=== PATIENT | male | born 1995 | race Caucasian/White ===

== ENCOUNTER 2021-02-26 03:29 | Emergency (ER) | payer OTHER, SELFPAY ==
[2021-02-26 03:37] VITALS: BP 146/81; PULSE 77; RESP 16; TEMP 36.9; O2SAT 98
--- NOTE | 2021-02-26 03:48 | ED.GENADUL_ITS ---
Discharge Plan Disposition Patient Disposition: HOME Condition: Good Discharge Details Clinical Impression: Kidney stone on right side Primary Care Provider: Zenaida Schuster V ED Provider: Eran Peralta Home Meds and New Rx's Prescriptions: New tamsulosin [Flomax] 0.4 mg capsule 0.4 mg PO DAILY Qty: 7 RF: 0 Discharge Instructions Instructions: Kidney Stones (ED) Additional Instructions: At this time you have evidence of a small kidney stone. This is likely the cause of your symptoms. This should pass within the next 12 to 48 hours, if not earlier. Please drink plenty of fluids, 10 to 12 cups/day at least. Please take 800 mg of ibuprofen every 6 hours and 1000 mg of Tylenol every 6 hours as needed for pain. These are the maximum doses of these medicines. Please take the Flomax as directed. This will help in expediting the passage of your kidney stone. If your pain stops, you can stop taking the Flomax. Please strain your urine to collect the stone. This can then be analyzed by your family doctor. If you do not have resolution of your symptoms after 48 to 72 hours please follow-up closely with your family doctor or return here for reassessment. If you notice any worsening of your symptoms, or any new symptoms such as inability to urinate, vomiting, diarrhea, fever, chills, shortness of breath, chest pain, numbness, weakness, or fainting , please return immediately to the emergency department for reevaluation. Please follow up with your primary care provider as soon as possible for reassessment and reevaluation. As always, it was a pleasure participating in your medical care today. Referrals: Zenaida Schuster MD [Primary Care Provider] - Medical Decision Making This is a 25-year-old male with no significant past medical history who presents today for evaluation of right flank pain. Patient states that for the last week he has noticed an increase in urinary frequency, but denies any burning or urethral discharge. He states that this evening and today he had presence of right lower quadrant abdominal pain. He denies a significant radiation to his groin. He denies any penile or testicular pain. Pain is made worse with movement and palpation of the right lower quadrant. Improved by nothing. Last meal was around 10 PM last night. He denies nausea and vomiting. He denies having any kidney or urinary problems before. He denies any previous abdominal surgeries. Patient states that he has not been sexually active for the last 3 years. He denies any history of STDs. No other complaints at this time. No other modifying factors. He did take an ibuprofen an hour prior to arrival and this did not improve his symptoms. Exam demonstrates mild to moderate right lower quadrant tenderness that is reproducible. Positive heel strike test on the right. Negative obturator and psoas sign. Normal genital exam. No testicular tenderness. Differential at this time is concerning for acute appendicitis, but also includes UTI, or kidney stone. We will get a CT scan, urinalysis, monitor closely and reassess. We will give Ofirmev for pain control. 5:09 AM Patient has near complete resolution of his pain on reassessment. Repeat abdominal exam shows no evidence of an acute surgical abdomen. CT scan shows evidence of a 3 to 4 mm distal right ureteral calculus, no evidence of acute appendicitis. Patient's laboratory work-up otherwise remained stable. Patient stable for discharge home. Will recommend continued fluid at home, Tylenol and Motrin as needed. Did discuss with the patient that his potassium is slightly low and recommended diet higher in legumes and bananas. Discussed red flags which to return. No indication for admission at this time as the patient's pain is well controlled, he is able to tolerate p.o. well, dose of tamsulosin was given here, and he has no evidence of infection. I have extensively reviewed [facility] treatment plan and discharge instructions with the patient. I have addressed all patient concerns at this time. The patient was made aware of what symptoms to monitor for that would warrant a return to the emergency department. Discussed the plan with the patient, they demonstrate verbal understanding and agreement with our assessment and plan at this time. The documentation in this chart was dictated using [employer] dictation software. Please excuse any dictation errors. FINDINGS: Liver: Normal. No mass. Gallbladder and bile ducts: Normal. No calcified stones. No ductal dilation. Pancreas: Normal. No ductal dilation. Spleen: Normal. No splenomegaly. Adrenal glands: Normal. No mass. Kidneys and ureters: Mild right hydroureteronephrosis secondary to a distal right ureteral calculus measuring approximately 3 -4 mm. Additional right renal calculus in the lower pole measuring 3-4 mm. Faint bilateral nephrocalcinosis suspected Stomach and bowel: Unremarkable. No obstruction. No mucosal thickening. Appendix: No evidence of appendicitis. Intraperitoneal space: Small pelvic fluid No free air. No significant fluid collection. Vasculature: Unremarkable. No abdominal aortic aneurysm. Lymph nodes: Unremarkable. No enlarged lymph nodes. Urinary bladder: Unremarkable as visualized. Reproductive: Unremarkable as visualized. Bones/joints: Unremarkable. No acute fracture. Soft tissues: Unremarkable. IMPRESSION: 3-4 mm distal right ureteral calculus with mild right hydroureteronephrosis 3-4 mm right renal calculus and faint bilateral nephrocalcinosis Small pelvic fluid No CT evidence for appendicitis Thank you for allowing us to participate in the care of your patient. Dictated and Authenticated by: Feliz Choudhury MD 02/26/2021 5:00 AM Eastern Time ([place] & [place]) HPI General Date/Time Provider Initiated Documentation: 02/26/21 03:30 . HPI Narrative: This is a 25-year-old male with no significant past medical history who presents today for evaluation of right flank pain. Patient states that for the last week he has noticed an increase in urinary frequency, but denies any burning or urethral discharge. He states that this evening and today he had presence of right lower quadrant abdominal pain. He denies a significant radiation to his groin. He denies any penile or testicular pain. Pain is made worse with movement and palpation of the right lower quadrant. Improved by nothing. Last meal was around 10 PM last night. He denies nausea and vomiting. He denies having any kidney or urinary problems before. He denies any previous abdominal surgeries. Patient states that he has not been sexually active for the last 3 years. He denies any history of STDs. No other complaints at this time. No other modifying factors. He did take an ibuprofen an hour prior to arrival and this did not improve his symptoms. Related Data Home Medications Medication Instructions Recorded Confirmed tamsulosin [Flomax] 0.4 mg PO DAILY #7 cap 02/26/21 Previous Rx's Medication Instructions Recorded tamsulosin [Flomax] 0.4 mg PO DAILY #7 cap 02/26/21 Allergies Allergy/AdvReac Type Severity Reaction Status Date / Time No Known Allergies Allergy Unverified 07/03/13 13:27 General Stated Complaint: Abd Prob MICAELA: 3 Review of Systems All systems reviewed & are unremarkable except as noted in HPI and below PFSH Social History (Reviewed 02/26/21 @ 04:07 by HERNANDO oRa Smoking/Tobacco Use Status: Never Smoking risk assessment performed?: Yes Alcohol Intake: current Alcohol Intake frequency: a few times a week Substance use type: does not use Do you feel safe at home: Yes Exam Narrative Exam Narrative: 1.Const: Well-nourished, Well-developed, appearing stated age 2.Eyes: PERRL, no conjunctival injection, and symmetrical lids. 3.ENT: Atraumatic external nose and ears. Moist MM. Neck: Symmetric, trachea midline, No thyromegaly. 4.CVS: +S1/S2, No murmurs or gallops. Peripheral pulses 2+ and equal in all extremities. Brisk capillary refill in all extremities. 5.RESP: Unlabored respiratory effort. Clear to auscultation bilaterally. No wheezes rales or rhonchi 6.GI: Soft, nondistended, mild to moderate right lower quadrant tenderness on palpation. No guarding or rebound. There is pain at McBurney's point, negative Weller sign. Negative obturator and psoas sign, positive right-sided heel strike test. No significant CVA tenderness. Genital exam demonstrates normal male genitalia, normal cremasteric reflex, no testicular scrotal or penile tenderness. No urethral discharge present. 7.MSK: Normocephalic/Atraumatic, Extremities w/o deformity or ttp No cyanosis or clubbing, Normal movement of all extremities 8.Skin: Warm, Dry. No rashes or lesions. 9.Neuro: wellness program administrator II-XII grossly intact. Sensation grossly intact, no focal neurologic deficits. 10.Psych: (AAO) x3. Appropriate mood and affect Course Vital Signs Vital signs: Vital Signs Temperature 36.9 C 02/26/21 03:37 Pulse 77 02/26/21 03:37 Respiratory Rate 16 02/26/21 03:37 Blood Pressure 146/81 H 02/26/21 03:37 Pulse Oximetry 98 02/26/21 03:37 Temperature 36.9 C 02/26/21 03:37 Temperature Source Skin 02/26/21 03:37 Pulse 77 02/26/21 03:37 Respiratory Rate 16 02/26/21 03:37 Respiratory Effort Non-Labored 02/26/21 03:41 Blood Pressure 146/81 H 02/26/21 03:37 Blood Pressure Position Sitting 02/26/21 03:37 Pulse Oximetry 98 02/26/21 03:37 Oxygen Delivery Method Room Air 02/26/21 03:37 Oxygen Flow Rate 0 02/26/21 03:37 Pain Level 6 02/26/21 03:41
[2021-02-26 04:03] LABS: Abs Immature Grans 0.01 10^3/uL (0.0-0.06); Absolute Basophil Count 0.05 10^3/uL (0.0-0.2); Absolute Lymphocyte Count 1.74 10^3/uL (1.2-3.4); Absolute Monocyte Count 0.55 10^3/uL (0.1-0.8); Absolute Neutrophil Count 5.25 10^3/uL (1.2-6.7); Basophils % 0.6; Eosinophils % 3.8; HCT 38.4 % (40.0-50.0); HGB 13.2 g/dL (13.5-17.5); Immature Grans % 0.1; MCH 29.5 pg (27.0-33.0); MCHC 34.4 % (32.0-36.0); MCV 85.9 fL (80-95); MPV 8.9 fL (8.0-11.0); Neutrophils % 66.5; Nucleated RBC 0 %; Platelet Count 233 10^3/uL (130-400); RBC 4.47 10^6/uL (4.36-5.78); RDW 12.4 % (11.8-14.1); RDW-SD 39.1 fL
[2021-02-26 04:04] LABS: Bilirubin Negative (Negative); Blood Large (Negative); Clarity Clear (Clear); Glucose Negative (Negative); Ketones Negative (Negative); Leukocyte Esterase Negative (Negative); Nitrite Negative (Negative); Urobilinogen 0.2 EU/dL (Up TO 0.2)
[2021-02-26] MEDS: ACETAMINOPHEN 1,000 MG/100 ML BTL 400 MG IVPB (04:08)
[2021-02-26 04:09] LABS: Bacteria Negative HPF (Negative); C & S Indicated? No; Casts Negative LPF (Negative); Crystals Negative HPF (Negative); Epithelial Cells Negative HPF (Negative); Mucus Negative (Negative); WBC Negative HPF (0-5)
[2021-02-26] MEDS: Normal Saline 1,000 ML 1000 ML IV (04:09)
[2021-02-26 04:14] LABS: ALT 15 U/L (16-63); AST 16 U/L (15-37); Albumin 4.3 g/dL (3.4-5.0); Alkaline Phosphatase 68 U/L (46-116); Anion Gap 11.6 mmol/L (3-11); BUN 19 mg/dL (7-18); Bilirubin, Total 0.6 mg/dL (0.2-1.0); CO2 25.4 mmol/L (21.0-32.0); CREATININE 1.2 mg/dL (0.70-1.30); Calcium 8.8 mg/dL (8.5-10.1); Chloride 104 mmol/L (98-107); Glucose 121 mg/dL (74-106); Potassium 3.1 mmol/L (3.5-5.1); Sodium 141 mmol/L (136-145); Total Protein 7.1 g/dL (6.4-8.2)
--- NOTE | 2021-02-26 04:36 | DI.CT_ITS ---
Exam(s) CT ABDOMEN PELVIS WO EXAM: CT ABDOMEN PELVIS WO CLINICAL HISTORY: rlq pain, r/o appe. TECHNIQUE: Imaging Protocol: Axial computed tomography images with coronal and sagittal reformatted images were created and reviewed. COMPARISON: No exams were available for comparison FINDINGS: ABDOMEN: Lung Bases: Normal where visualized. Liver: Normal density. No measurable mass. Gallbladder and biliary tract: No radiodense calculus or biliary ductal dilation. Pancreas: Normal density, no abnormal calcifications or inflammatory process. Spleen: Normal. Kidneys: Normal size, contour and axis.4 mm nonobstructing stone in the lower pole of the right kidne y. There is a 4 mm stone in the distal right ureter just proximal to the ureteral vesicular junction causing mild hydronephrosis. No masses seen. Adrenal glands: No mass is seen. Lymph nodes: Mildly enlarged lymph nodes are seen in the right lower quadrant and mesentery. Abdominal Aorta: Abdominal portion non-dilated. PELVIS: Bladder:Symmetric distention, no gross wall thickening. Bowel: No obstruction or bowel wall thickening. No evidence of appendicitis. Peritoneal cavity: There is a small amount of fluid in the pelvis. No free air. Reproductive organs: Within normal limits. Bones: Within normal limits. Soft Tissues: Within normal limits. IMPRESSION: 1. 4 mm distal right ureteral stone causing mild right hydroureteronephrosis. 2. Right nephrolithiasis. 3. No evidence of appendicitis. 4. Small fat amount of free pelvic fluid. RADIATION DOSE DELIVERED: 417.17mGy.cm Total DLP DATA REPOSITORY: All CT scans at this facility are submitted to the National Radiology Data Registry (NRDR) Dose Index Registry (DIR) with the [employer] (ACR). RADIATION OPTIMIZATION: All CT scans at this facility use at least one of these dose optimization te chniques: automated exposure control; mA and/or kV adjustment per patient size (includes targeted exa ms where dose is matched to clinical indication); or iterative reconstruction.
--- NOTE | 2021-02-26 05:00 | DI.VRAD_ITS ---
PROCEDURE INFORMATION: Exam: CT Abdomen And Pelvis Without Contrast Exam date and time: 02/26/2021 3:48 AM Age: 25 years old Clinical indication: Abdominal pain; Localized; Right lower quadrant (rlq); Patient HX: Rlq pain, hematuria, nausea, R/O appe vs renal stone TECHNIQUE: Imaging protocol: Computed tomography of the abdomen and pelvis without contrast. Radiation optimization: All CT scans at this facility use at least one of these dose optimization techniques: automated exposure control; mA and/or kV adjustment per patient size (includes targeted exams where dose is matched to clinical indication); or iterative reconstruction. COMPARISON: No relevant prior studies available. FINDINGS: Liver: Normal. No mass. Gallbladder and bile ducts: Normal. No calcified stones. No ductal dilation. Pancreas: Normal. No ductal dilation. Spleen: Normal. No splenomegaly. Adrenal glands: Normal. No mass. Kidneys and ureters: Mild right hydroureteronephrosis secondary to a distal right ureteral calculus measuring approximately 3 -4 mm. Additional right renal calculus in the lower pole measuring 3-4 mm. Faint bilateral nephrocalcinosis suspected Stomach and bowel: Unremarkable. No obstruction. No mucosal thickening. Appendix: No evidence of appendicitis. Intraperitoneal space: Small pelvic fluid No free air. No significant fluid collection. Vasculature: Unremarkable. No abdominal aortic aneurysm. Lymph nodes: Unremarkable. No enlarged lymph nodes. Urinary bladder: Unremarkable as visualized. Reproductive: Unremarkable as visualized. Bones/joints: Unremarkable. No acute fracture. Soft tissues: Unremarkable. IMPRESSION: 3-4 mm distal right ureteral calculus with mild right hydroureteronephrosis 3-4 mm right renal calculus and faint bilateral nephrocalcinosis Small pelvic fluid No CT evidence for appendicitis Dictated and Authenticated by: Feliz Choudhury MD. Ordering:LAURA Barillas MD
[2021-02-26] MEDS: Tamsulosin 0.4 MG CAPCR PO (05:07)
[2021-02-26 05:08] VITALS: BP 125/69; PULSE 81; RESP 16; O2SAT 98
== END 2021-02-26 05:11 | disposition home or self-care (01) ==
PROVIDERS: Emergency Provider Student in an Organized Health Care Education/Training Program; PCP Pediatrics
DX: N20.0 Calculus of kidney (principal)
CPT/HCPCS: 80053; 87491; 87591; 96361; 96374; 99284; 74176; 81003; 81015; 85025; 99283; J0131

== ENCOUNTER 2021-09-16 03:10 | Outpatient (CLI) | payer OTHER, SELFPAY ==
[2021-09-16 13:00] LABS: Hemoglobin A1C 5.2 % (<5.7)
[2021-09-16 13:24] LABS: Calculated LDL 83 mg/dL (<100); Cholesterol 145 mg/dL (<200); HDL Cholesterol 55 mg/dL (40-60); TSH 2.07 uIU/mL (0.36-3.74); Triglyceride 36 mg/dL (<150)
== END 2021-09-16 03:11 | disposition home or self-care (01) ==
LOC: LBO 03:10
PROVIDERS: PCP Nurse Practitioner Family; Visit Provider Nurse Practitioner Family
DX: Z13.220 Encounter for screening for lipoid disorders (principal); Z13.1 Encounter for screening for diabetes mellitus; Z13.29 Encounter for screening for other suspected endocrine disorder
CPT/HCPCS: 36415; 80061; 83036; 84443

== ENCOUNTER 2021-09-17 20:05 | Outpatient (REF) | payer OTHER, SELFPAY ==
[2021-09-17 21:19] LABS: Bilirubin Negative (Negative); Blood Negative (Negative); Clarity Clear (Clear); Glucose Negative (Negative); Ketones Negative (Negative); Leukocyte Esterase Negative (Negative); Nitrite Negative (Negative); Urobilinogen 0.2 EU/dL (Up TO 0.2); pH 8.5 (5-8)
== END 2021-09-17 20:06 | disposition home or self-care (01) ==
LOC: LBN 20:05
PROVIDERS: PCP Nurse Practitioner Family; Visit Provider Physician Assistant
DX: N39.0 Urinary tract infection, site not specified (principal)
CPT/HCPCS: 81003

== ENCOUNTER 2021-12-30 20:26 | Outpatient (REF) | payer OTHER, SELFPAY ==
[2022-01-01 09:47] LABS: HIV-1/2 Ag & Ab Screen Negative (Negative)
[2022-01-01 11:35] LABS: Syphilis Serology (RPR) Negative (Negative)
[2022-01-01 14:57] LABS: Chlamydia Result Negative (Negative); GC Result Negative (Negative)
== END 2021-12-30 20:27 | disposition home or self-care (01) ==
LOC: LBN 20:26
PROVIDERS: PCP Nurse Practitioner Family; Visit Provider Nurse Practitioner Family
DX: Z11.3 Encounter for screening for infections with a predominantly sexual mode of transmission (principal); Z11.4 Encounter for screening for human immunodeficiency virus [HIV]
CPT/HCPCS: 87389; 87491; 87591; 86592

== ENCOUNTER 2022-01-21 20:28 | Outpatient (REF) | payer OTHER, SELFPAY ==
[2022-01-22 10:38] LABS: Campylobacter PCR Negative (Negative); Salmonella PCR Negative (Negative); Shiga Toxin PCR Negative (Negative); Shigella/Enteroinvasive Ecoli Negative (Negative)
== END 2022-01-21 20:29 | disposition home or self-care (01) ==
LOC: LBN 20:28
PROVIDERS: PCP Nurse Practitioner Family; Visit Provider Nurse Practitioner Family
DX: R19.7 Diarrhea, unspecified (principal)
CPT/HCPCS: 87505

== ENCOUNTER 2022-01-24 13:53 | Emergency (ER) | payer OTHER, SELFPAY ==
[2022-01-24 13:59] VITALS: BP 131/88; PULSE 89; RESP 16; TEMP 37.1; O2SAT 98
--- NOTE | 2022-01-24 14:06 | ED.GENADUL_ITS ---
Discharge Plan Disposition Patient Disposition: HOME Condition: Stable Discharge Details Clinical Impression: Anxiety Primary Care Provider: Rajeev Laboy ED Provider: Sonia Lima Home Meds and New Rx's Prescriptions: No Action lorazepam [Ativan] 0.5 mg tablet 0.5 mg PO BID PRN0RF tamsulosin 0.4 mg capsule 0.8 mg PO DAILY 7 Days Qty: 14 0RF Discharge Instructions Instructions: Anxiety (ED) Additional Instructions: Your lab work, EKG and chest x-ray today is reassuring and shows no evidence of acute concerning or significant findings. You are being sent home with Ativan to take as needed and directed for feelings of anxiety or to help with sleep. You can call [facility] health at [phone] for further discussion your symptoms. Call your primary care doctor's office tomorrow morning to schedule follow-up appointment for reevaluation within the next week. Return immediately to the emergency department if you develop any worsening or new concerning symptoms. Discharge Data Discharge Date/Time-TO BE ENTERED AT DEPARTURE: 01/24/22 16:24 Discharge Physician: Sonia Lima Medical Decision Making 26-year-old male presents with feelings of anxiety over the past few days. Admits to palpitations, difficulty sleeping, intermittent shortness of breath. Denies any alcohol or drug use. Vitals within normal limits. Patient appears anxious but nontoxic. No acute findings on exam. No focal deficits. No meningeal signs. History and presentation does not appear consistent with likely a panic attack. History and presentation does not appear consistent with CVA, meningitis, PE, arrhythmia. Will obtain screening labs, EKG, chest x-ray, D-dimer and thyroid studies. We will give a dose of Ativan p.o. Labs and imaging reviewed and unremarkable. Normal white blood cell count. Normal hemoglobin. Normal D-dimer. Troponin negative. TSH within normal limits. Chest x-ray negative. EKG unremarkable. Patient reassessed and he feels significantly better and is requesting to go home. He was offered opportunity to speak with behavioral health which she declined. He prefers to take resources home. Patient advised to call his PCP this week for reevaluation and further discussion of his symptoms including possibility of starting SSRI or another medication which may be able to better manage his anxiety long-term. Will send home with a few tabs of Ativan to take as needed for feelings of anxiety or to help with sleep. Other possible considerations for further work-up including outpatient library monitor if symptoms were to persist or worsen. Medical Records Medical records reviewed: Yes I reviewed the patient's medical records. Imaging Data Radiologic Study: Radiologist's impression: XR Chest Exam date and time: 01/24/2022 3:00 PM Age: 26 years old Clinical indication: Other: Chest pain, SOB, R/O acute disease TECHNIQUE: Imaging protocol: XR of the chest. Views: 2 views. COMPARISON: CT ABDOMEN PELVIS WO 02/26/2021 4:35 AM FINDINGS: Lungs: Unremarkable. No consolidation. Pleural spaces: Unremarkable. No pleural effusion. No pneumothorax. Heart/Mediastinum: Unremarkable. No cardiomegaly. Bones/joints: Unremarkable. IMPRESSION: No acute findings. Lab Data Lab results reviewed: Yes I reviewed the patient's lab results. Labs: Laboratory Tests Range/Units 01/24/22 01/24/22 01/24/22 14:45 14:45 14:45 WBC (4.4-10.8) 10^3/uL 7.79 RBC (4.36-5.78) 10^6/uL 4.69 Hgb (13.5-17.5) g/dL 13.6 Hct (40.0-50.0) % 40.1 MCV (80-95) fL 86 MCH (27.0-33.0) pg 29.0 MCHC (32.0-36.0) % 33.9 RDW (11.8-14.1) % 12.7 Plt Count (130-400) 10^3/uL 293 MPV (8.0-11.0) fL 8.8 Immature Gran % 0.4 Neutrophils % 73.2 Lymphocytes % 14.5 Monocytes % 10.0 Eosinophils % 1.4 Basophils % 0.5 Nucleated RBC % (0.0-0.3) % 0.0 Absolute Neutrophils (1.2-6.7) 10^3/uL 5.70 Absolute Lymphocytes (1.2-3.4) 10^3/uL 1.13 L Absolute Monocytes (0.1-0.8) 10^3/uL 0.78 Absolute Eosinophils (0.0-0.7) 10^3/uL 0.11 Absolute Basophils (0.0-0.2) 10^3/uL 0.04 D-Dimer (<500) ng/mlFEU 149 Sodium (136-145) mmol/L 139 Potassium (3.5-5.1) mmol/L 3.6 Chloride (98-107) mmol/L 106 Carbon Dioxide (21.0-32.0) mmol/L 26.2 Anion Gap (3-11) mmol/L 6.8 BUN (7-18) mg/dL 14 Creatinine (0.70-1.30) mg/dL 1.0 Estimated GFR/1.73 m2 (mL/min/1.73m2) >= 60.00 Glucose (74-106) mg/dL 108 H Calcium (8.5-10.1) mg/dL 9.0 Magnesium (1.8-2.4) mg/dL 2.2 Total Bilirubin (0.2-1.0) mg/dL 0.5 AST (15-37) U/L 15 ALT (16-63) U/L 20 Alkaline Phosphatase (46-116) U/L 76 Troponin I (<or=60) ng/L < 50 Total Protein (6.4-8.2) g/dL 7.7 Albumin (3.4-5.0) g/dL 4.2 TSH (0.36-3.74) uIU/mL 1.33 ECG Data Attestation: I personally reviewed and interpreted this ECG (s) as follows: Interpretation: rate of 67, sinus, LVH, peaked T waves, no stemi. HPI General Mode of arrival: ambulatory . Date/Time Provider Initiated Documentation: 01/24/22 14:06 . Limitations to Documentation: no limitations . Information obtained by: patient . HPI Narrative: Patient is a 26-year-old male who presents with feelings of anxiety for the past several days. Patient states he flew to [place] a few days ago and became very anxious during the flight. He states he went directly to an urgent care for his symptoms and he was given hydroxyzine without relief. He states he immediately brought another plane ticket to return immediately home but had been originally scheduled to stay until January 30. He states since then he has been unable to sleep with feelings of palpitations, occasional shortness of breath and anxiety. He states every time he tries to lay down to go to sleep because palpitations wake him up again. He denies any caffeine or stimulant use, drug use or alcohol use. He denies smoking. He denies any recent illness including fever, vomiting, diarrhea. He does admit to occasional chest pain and shortness of breath but denies any at present. He states his main concern at this time is being able to try to sleep. He states he did have COVID a few months ago but states he fully recovered. He is not vaccinated for COVID. Related Data Home Medications Medication Instructions Recorded Confirmed tamsulosin 0.4 mg capsule 0.8 mg PO DAILY 7 Days #14 cap 01/25/22 lorazepam 0.5 mg tablet (Ativan) 0.5 mg PO BID PRN 01/26/22 Previous Rx's Medication Instructions Recorded tamsulosin 0.4 mg capsule 0.8 mg PO DAILY 7 Days #14 cap 01/25/22 Allergies Allergy/AdvReac Type Severity Reaction Status Date / Time Penicillins Allergy Verified 01/26/22 10:31 shellfish derived Allergy Anaphylaxis Verified 01/26/22 10:31 General Stated Complaint: Anxiety MICAELA: 3 Review of Systems All systems reviewed & are unremarkable except as noted in HPI and below Constitutional Constitutional: Denies chills, Denies excessive sweating, Denies fatigue, Denies fever(s), Denies weakness and Denies weight loss Eyes Eyes: Reports system reviewed and no additional complaints, except as documented and Denies blurry vision ENT Ears, Nose, Mouth, and Throat: Denies vertigo, Denies dizziness, Denies otalgia, Denies nasal congestion, Denies sore throat and Denies throat swelling Cardiovascular Cardiovascular: Denies chest pain, Denies syncope, Denies rapid heart rate and Denies dyspnea Respiratory Respiratory: Denies chest congestion, Denies cough, Denies pain on inspiration and Denies dyspnea Gastrointestinal Gastrointestinal: Denies abdominal pain, Denies diarrhea and Denies vomiting Genitourinary Genitourinary: Denies hematuria, Denies dysuria and Denies flank pain Musculoskeletal Musculoskeletal: Denies back pain and Denies joint swelling Integumentary/Breasts Skin/Breast: Denies lesions and Denies rash Neurologic Neurologic: Denies behavioral changes, Denies confusion, Denies vertigo, Denies dizziness, Denies syncope, Denies localized weakness and Denies weakness Psychiatric Psychiatric: Reports abnormal sleep pattern, Reports anxiety, Denies behavioral changes, Denies confusion, Denies depression and Reports difficulty concentrating Endocrine Endocrine: Denies excessive sweating and Denies fatigue Hematologic/Lymphatic Hematologic/Lymphatic: Denies easy bruising and Denies lymphadenopathy Allergic/Immunologic Allergic/Immunologic: Denies throat swelling PFSH All Active Problems (Updated 01/25/22 @ 13:13 by Yung Dawson MD) Anxiety (Chronic) Kidney stone (Chronic) Hydronephrosis (Acute) Family history of colon cancer (Acute) Diarrhea (Acute) Medical History (Updated 01/25/22 @ 13:13 by Yung Dawson MD) Family history of irritable bowel syndrome Kidney stone on right side Surgical History (Updated 01/24/22 @ 14:33 by Sonia Lima DO) No significant past surgical history Family History Mother Asthma Father No problems noted. Paternal Grandfather Diabetes Hyperlipidemia Paternal Grandmother Colon cancer Depression Hyperlipidemia Social History (Updated 01/22/22 @ 07:41 by AC Puente) Smoking/Tobacco Use Status: Never Second Hand Exposure: Yes Smoking risk assessment performed?: Yes Alcohol Intake: current Alcohol Intake frequency: 0-2 drinks per day Alcohol type: hard liquor Drug use: Rarely Substance use type: marijuana Details: smoked 2 years ago Caregiver/Support person: No Household members: other Details: roomate Communication Needs: None Pets and animals: Yes Pets and animals: dog(s) Sexually active: No Do you think of yourself as: straight/heterosexual Current gender identity: male What is your relationship status?: never How often do you talk on the phone with friends or family?: three or more times per week How often do you get together with friends or relatives?: once per week How often do you attend mandaeism or baptist services?: 1-3 times per year Panel score (0-1 are the most socially isolated patients): 1 What type of physical activity do you participate in: bicycling Duration: 45-60 minutes/day Frequency: daily Karla/Mandaeism: Sikhism Special karla needs: No Seatbelt use: always Helmet use: Yes Helmet use: sometimes Drive intox or ride w/intox 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 Do you feel safe at home: Yes Do you feel safe in your relationship?: Yes Exam Const General: cooperative, healthy appearing and anxious Orientation: alert, awake and oriented x3 HENIL Head: normal to inspection Ears: hearing grossly normal bilaterally and external ears normal General nose exam: external nose normal Face and sinus: normal facial exam Mouth: oral mucosae normal Teeth and gingiva: dentition normal Throat: posterior oropharynx normal Eyes General: appearance normal, both eyes and all related structures Eyelids: eyelids normal Pupils: PERRL EOM: EOM intact bilaterally Neck Neck: normal visual inspection Lymphatic: no lymphadenopathy noted Chest Chest: normal inspection of the chest Resp Effort & Inspection: normal respiratory effort and able to speak in complete sentences Auscultation: clear to auscultation bilaterally Cardio Rate: regular rate Rhythm: regular rhythm GI Inspection: normal to inspection Palpation: soft, not firm, no guarding, no hepatosplenomegaly, no masses and nontender Auscultation: normal bowel sounds Back/Spine/Pelvis Back: no CVA tenderness Skin General skin exam: no rashes or lesions noted Neuro General: patient alert, patient awake, patient oriented x3, moves all extremities, no meningeal signs and no focal motor deficits Cranial Nerves: CN's II-XI intact bilaterally Cognition: normal cognition Speech: speech normal Gait: normal gait Motor: muscle tone normal throughout and strength 5/5 throughout Sensory Exam: no sensory deficits noted Extrem General: normal to inspection, full ROM and capillary refill normal Psych Appearance: grossly normal Mental Status: mental status grossly normal Speech and Movement: speech and movement normal Mood: anxious mood Affect: anxious affect Attitude: cooperative Thought Process: normal
[2022-01-24 14:08] VITALS: RESP 16
--- NOTE | 2022-01-24 14:15 | RT.EKG_ITS ---
APPROVED REPORT Exam: Resting ECG Reason for Exam: chest pain Patient Location: E HR:67 bpm ECG Measurements Heart Rate 67 AXIS AR 140 P 76 QRSd 92 QRS 78 QT 377 T 68 QTc 398 Conclusion Sinus rhythm...normal P axis, V-rate 60- 99. Sinus. Normal axis. LVH. Peaked T waves. No STEMI. I have reviewed and interpreted ECG and agree with software generated interpretation.
[2022-01-24] MEDS: LORazepam 1 MG TAB PO (14:27)
--- NOTE | 2022-01-24 14:30 | DI.RAD_ITS ---
Exam(s) XR CHEST 2V PA LATERAL EXAM: XR CHEST 2V PA LATERAL CLINICAL HISTORY: chest pain, sob, r/o acute disease TECHNIQUE: 2D digital imaging was performed. COMPARISON: No exams were available for comparison FINDINGS: MEDIASTINUM: Normal. HEART: Normal. PULMONARY VASCULATURE: Normal. LUNGS: Clear. PLEURAL SPACE: No pleural effusion or pneumothorax. BONE:Unremarkable for age. IMPRESSION: No acute abnormality. DATA REPOSITORY: RADIATION DOSE DELIVERED:
[2022-01-24 14:53] LABS: Abs Immature Grans 0.03 10^3/uL (0.0-0.06); Absolute Basophil Count 0.04 10^3/uL (0.0-0.2); Absolute Eosinophil Count 0.11 10^3/uL (0.0-0.7); Absolute Lymphocyte Count 1.13 10^3/uL (1.2-3.4); Absolute Monocyte Count 0.78 10^3/uL (0.1-0.8); Basophils % 0.5; Eosinophils % 1.4; HCT 40.1 % (40.0-50.0); HGB 13.6 g/dL (13.5-17.5); Immature Grans % 0.4; Lymphocytes % 14.5; MCHC 33.9 % (32.0-36.0); MCV 86 fL (80-95); MPV 8.8 fL (8.0-11.0); Neutrophils % 73.2; Platelet Count 293 10^3/uL (130-400); RBC 4.69 10^6/uL (4.36-5.78); RDW 12.7 % (11.8-14.1); RDW-SD 39.6 fL; WBC 7.79 10^3/uL (4.4-10.8)
[2022-01-24 15:17] LABS: ALT 20 U/L (16-63); AST 15 U/L (15-37); Albumin 4.2 g/dL (3.4-5.0); Alkaline Phosphatase 76 U/L (46-116); Anion Gap 6.8 mmol/L (3-11); BUN 14 mg/dL (7-18); Bilirubin, Total 0.5 mg/dL (0.2-1.0); CO2 26.2 mmol/L (21.0-32.0); Chloride 106 mmol/L (98-107); Glucose 108 mg/dL (74-106); Magnesium 2.2 mg/dL (1.8-2.4); Potassium 3.6 mmol/L (3.5-5.1); Sodium 139 mmol/L (136-145); TSH (W/Ref FT4) 1.33 uIU/mL (0.36-3.74); Total Protein 7.7 g/dL (6.4-8.2); Troponin I < 50 ng/L (<or=60)
[2022-01-24 15:26] LABS: D-Dimer 149 ng/mlFEU (<500)
--- NOTE | 2022-01-24 15:45 | DI.VRAD_ITS ---
PROCEDURE INFORMATION: Exam: XR Chest Exam date and time: 01/24/2022 3:00 PM Age: 26 years old Clinical indication: Other: Chest pain, SOB, R/O acute disease TECHNIQUE: Imaging protocol: XR of the chest. Views: 2 views. COMPARISON: CT ABDOMEN PELVIS WO 02/26/2021 4:35 AM FINDINGS: Lungs: Unremarkable. No consolidation. Pleural spaces: Unremarkable. No pleural effusion. No pneumothorax. Heart/Mediastinum: Unremarkable. No cardiomegaly. Bones/joints: Unremarkable. IMPRESSION: No acute findings. Dictated and Authenticated by: Sanjeev Dickson MD. Ordering:RAMAKRISHNA Soctt MD
[2022-01-24] MEDS: LORazepam 0.5 MG TAB 2 MG PO (16:22)
== END 2022-01-24 16:24 | disposition home or self-care (01) ==
PROVIDERS: Emergency Provider Physician Assistant; PCP Nurse Practitioner Family
DX: F41.9 Anxiety disorder, unspecified (principal); R07.9 Chest pain, unspecified; R06.02 Shortness of breath
CPT/HCPCS: 36415; 80053; 93005; 99284; 71046; 83735; 84443; 84484; 85025; 85379; 93010; 99283

== ENCOUNTER 2022-01-25 11:25 | Emergency (ER) | payer OTHER, SELFPAY ==
[2022-01-25 11:32] VITALS: BP 140/82; PULSE 69; RESP 17; TEMP 37.2; O2SAT 100
[2022-01-25 12:10] LABS: Abs Immature Grans 0.06 10^3/uL (0.0-0.06); Absolute Basophil Count 0.06 10^3/uL (0.0-0.2); Absolute Eosinophil Count 0.14 10^3/uL (0.0-0.7); Absolute Lymphocyte Count 1.24 10^3/uL (1.2-3.4); Absolute Monocyte Count 0.68 10^3/uL (0.1-0.8); Absolute Neutrophil Count 6.22 10^3/uL (1.2-6.7); Basophils % 0.7; Eosinophils % 1.7; HCT 42.3 % (40.0-50.0); HGB 14.6 g/dL (13.5-17.5); Immature Grans % 0.7; Lymphocytes % 14.8; MCH 29.3 pg (27.0-33.0); MCHC 34.5 % (32.0-36.0); MCV 85 fL (80-95); MPV 8.9 fL (8.0-11.0); Monocytes % 8.1; Platelet Count 310 10^3/uL (130-400); RBC 4.99 10^6/uL (4.36-5.78); RDW 12.4 % (11.8-14.1); RDW-SD 38.2 fL
[2022-01-25] MEDS: Normal Saline 500 ML 1000 ML IV (12:11)
[2022-01-25] MEDS: Ondansetron 4 MG/2 ML VIAL IVP (12:11)
[2022-01-25] MEDS: Ketorolac 15 MG/ML VIAL IVP (12:12)
[2022-01-25 12:20] LABS: ALT 16 U/L (16-63); AST 17 U/L (15-37); Albumin 4.4 g/dL (3.4-5.0); Alkaline Phosphatase 77 U/L (46-116); Anion Gap 12.7 mmol/L (3-11); BUN 18 mg/dL (7-18); Bilirubin, Total 0.8 mg/dL (0.2-1.0); CO2 24.3 mmol/L (21.0-32.0); CREATININE 1.5 mg/dL (0.70-1.30); Calcium 9.3 mg/dL (8.5-10.1); Chloride 99 mmol/L (98-107); Estimated GFR 56.57 (mL/min/1.73m2); Glucose 120 mg/dL (74-106); Potassium 3.3 mmol/L (3.5-5.1); Sodium 136 mmol/L (136-145)
[2022-01-25] MEDS: Tamsulosin 0.4 MG CAPCR PO (12:23)
[2022-01-25 12:24] LABS: Bilirubin Small (Negative); Blood Trace-lysed (Negative); Clarity Clear (Clear); Glucose Negative (Negative); Ketones 40 mg/dL (Negative); Leukocyte Esterase Negative (Negative); Nitrite Negative (Negative); Specific Gravity >= 1.030 (1.005-1.025); Urobilinogen 0.2 EU/dL (Up TO 0.2); pH 5.5 (5-8)
[2022-01-25 12:29] LABS: Bacteria Negative HPF (Negative); C & S Indicated? No; Casts 0-2 Hyaline LPF (Negative); Crystals Negative HPF (Negative); Epithelial Cells Rare HPF (Negative); Mucus Moderate (Negative); RBC 0-2 HPF (0-2); WBC Negative HPF (0-5)
--- NOTE | 2022-01-25 12:37 | W.ED.GENAD ---
Discharge Plan Disposition Patient Disposition: HOME Condition: Improving Discharge Details Clinical Impression: Kidney stone, Hydronephrosis Primary Care Provider: Rajeev Laboy ED Provider: Yung Dawson Home Meds and New Rx's Prescriptions: New tamsulosin 0.4 mg capsule 0.8 mg PO DAILY 7 Days Qty: 14 0RF Discharge Instructions Instructions: Kidney Stones (ED) Additional Instructions: Please follow-up with Dr. Ortega's office (urology) this week to schedule your procedure. Please return to the emergency department for worsening symptoms which would include nausea vomiting inability urinate worsening pain fevers chills or other abnormal symptoms. Referrals: Berry Ortega MD [ [facility] STAFF PHYSICIAN] - (office visit this week) Claudine Buchanan DNP [NURSE PRACTITIONER] - (office visit this week) Medical Decision Making 26-year-old male history of kidney stones presents with right flank pain abdominal pain associated with inability to urinate, discomfort gotten worse over the past 2 days however has intermittent pain that he attributes to kidney stones over the past several months to year, no history of lithotripsy or stenting. Abdomen soft nontender nondistended, no nausea or vomiting, hemodynamically stable, consider nephrolithiasis with renal colic versus less likely pyelonephritis or UTI versus must consider appendicitis versus colitis, analgesia antiemetics, labs, CT Noncon close reassessment 13: 10 patient resting comfortably no acute distress at this time, Toradol was beneficial. Evidence of obstructing 4 mm right UVJ stone stable in location since February of last year. Spoke with urology team who will schedule patient in the office for ureteroscopy. Patient to be sent home on tamsulosin. Strict return precautions for worsening symptoms or signs of infection HPI General Date/Time Provider Initiated Documentation: 01/25/22 11:50. HPI Narrative: 26-year-old male history of kidney stones, presents with right abdominal/flank discomfort severe in nature over the past several months worsening over the past 2 days, denies nausea or vomiting, endorses that he is unable to urinate. Denies history of instrumentation such as stenting or lithotripsy Related Data Home Medications Medication Instructions Recorded Confirmed tamsulosin 0.4 mg capsule 0.8 mg PO DAILY 7 Days #14 cap 01/25/22 Previous Rx's Medication Instructions Recorded tamsulosin 0.4 mg capsule 0.8 mg PO DAILY 7 Days #14 cap 01/25/22 Allergies Allergy/AdvReac Type Severity Reaction Status Date / Time Penicillins Allergy Verified 01/25/22 11:37 shellfish derived Allergy Anaphylaxis Verified 01/25/22 11:37 General Stated Complaint: FlankPain MICAELA: 3 Review of Systems Narrative: Review of Systems Constitutional: negative Eyes: negative ENT: negative Cardiovascular: negative Respiratory: negative Gastrointestinal: Abdominal pain : Flank pain inability to urinate Musculoskeletal: negative Skin: negative Neurologic: negative Psych: negative PFSH All Active Problems (Updated 01/25/22 @ 13:13 by Yung Dawson MD) Anxiety (Chronic) Kidney stone (Chronic) Hydronephrosis (Acute) Family history of colon cancer (Acute) Diarrhea (Acute) Medical History (Updated 01/25/22 @ 13:13 by Yung Dawson MD) Family history of irritable bowel syndrome Kidney stone on right side Surgical History (Updated 01/24/22 @ 14:33 by Sonia Lima DO) No significant past surgical history Family History Mother Asthma Father No problems noted. Paternal Grandfather Diabetes Hyperlipidemia Paternal Grandmother Colon cancer Depression Hyperlipidemia Social History (Updated 01/22/22 @ 07:41 by AC Puente) Smoking/Tobacco Use Status: Never Second Hand Exposure: Yes Smoking risk assessment performed?: Yes Alcohol Intake: current Alcohol Intake frequency: 0-2 drinks per day Alcohol type: hard liquor Drug use: Rarely Substance use type: marijuana Details: smoked 2 years ago Caregiver/Support person: No Household members: other Details: roomate Communication Needs: None Pets and animals: Yes Pets and animals: dog(s) Sexually active: No Do you think of yourself as: straight/heterosexual Current gender identity: male What is your relationship status?: never How often do you talk on the phone with friends or family?: three or more times per week How often do you get together with friends or relatives?: once per week How often do you attend nondenominational or jewish services?: 1-3 times per year Panel score (0-1 are the most socially isolated patients): 1 What type of physical activity do you participate in: bicycling Duration: 45-60 minutes/day Frequency: daily Karla/Sabianist: Jain Special karla needs: No Seatbelt use: always Helmet use: Yes Helmet use: sometimes Drive intox or ride w/intox 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 Do you feel safe at home: Yes Do you feel safe in your relationship?: Yes Exam Narrative Exam Narrative: Physical Examination General: alert, awake, cooperative, appears uncomfortable, tearful HEENT: normocephalic, atraumatic; PERRL, EOM intact, conjunctiva normal; no nasal discharge; moist mucous membranes, oral and pharyngeal mucosa normal, tolerating secretions Neck: supple, trachea midline; full ROM Chest: normal to inspection Respiratory: normal respiratory effort, speaking in full sentences, clear to auscultation, no wheezing, rales or rhonchi Cardiac: regular rate, regular rhythm, S1S2 intact, no murmurs rubs or gallops GI: abdomen soft, non-tender, non-distended; no palpable mass or hepatosplenomegaly Skin: no lesions, rashes or trauma appreciated Neuro: AAOx3, normal speech, moving all extremities Psych: Appropriate mood and affect Course Vital Signs Vital signs: Vital Signs Temperature 37.2 C 01/25/22 11:32 Pulse 69 01/25/22 11:32 Respiratory Rate 17 01/25/22 11:32 Blood Pressure 140/82 01/25/22 11:32 Pulse Oximetry 100 01/25/22 11:32 Temperature 37.2 C 01/25/22 11:32 Temperature Source Temporal Artery Scan 01/25/22 11:32 Pulse 69 01/25/22 11:32 Respiratory Rate 17 01/25/22 11:32 Respiratory Effort Non-Labored 01/25/22 11:35 Blood Pressure 140/82 01/25/22 11:32 Blood Pressure Position Sitting 01/25/22 11:32 Pulse Oximetry 100 01/25/22 11:32 Oxygen Delivery Method Room Air 01/25/22 11:32 Oxygen Flow Rate 0 01/25/22 11:32 Pain Level 10 01/25/22 11:35 Lab/Test Results Lab/Test Results: Laboratory Tests Range/Units 01/25/22 01/25/22 01/25/22 11:47 11:47 12:14 WBC (4.4-10.8) 10^3/uL 8.40 RBC (4.36-5.78) 10^6/uL 4.99 Hgb (13.5-17.5) g/dL 14.6 Hct (40.0-50.0) % 42.3 MCV (80-95) fL 85 MCH (27.0-33.0) pg 29.3 MCHC (32.0-36.0) % 34.5 RDW (11.8-14.1) % 12.4 Plt Count (130-400) 10^3/uL 310 MPV (8.0-11.0) fL 8.9 Immature Gran % 0.7 Neutrophils % 74.0 Lymphocytes % 14.8 Monocytes % 8.1 Eosinophils % 1.7 Basophils % 0.7 Nucleated RBC % (0.0-0.3) % 0.0 Absolute Neutrophils (1.2-6.7) 10^3/uL 6.22 Absolute Lymphocytes (1.2-3.4) 10^3/uL 1.24 Absolute Monocytes (0.1-0.8) 10^3/uL 0.68 Absolute Eosinophils (0.0-0.7) 10^3/uL 0.14 Absolute Basophils (0.0-0.2) 10^3/uL 0.06 Sodium (136-145) mmol/L 136 Potassium (3.5-5.1) mmol/L 3.3 L Chloride (98-107) mmol/L 99 Carbon Dioxide (21.0-32.0) mmol/L 24.3 Anion Gap (3-11) mmol/L 12.7 H BUN (7-18) mg/dL 18 Creatinine (0.70-1.30) mg/dL 1.5 H Estimated GFR/1.73 m2 (mL/min/1.73m2) 56.57 Glucose (74-106) mg/dL 120 H Calcium (8.5-10.1) mg/dL 9.3 Total Bilirubin (0.2-1.0) mg/dL 0.8 AST (15-37) U/L 17 ALT (16-63) U/L 16 Alkaline Phosphatase (46-116) U/L 77 Total Protein (6.4-8.2) g/dL 8.0 Albumin (3.4-5.0) g/dL 4.4 Urine Color (Yellow) Yellow Urine Clarity (Clear) Clear Urine pH (5-8) 5.5 Ur Specific [place] (1.005-1.025) >= 1.030 H Urine Protein (Negative) mg/dL 30 H Urine Ketones (Negative) mg/dL 40 H Urine Blood (Negative) Trace-lysed H Urine Nitrite (Negative) Negative Urine Bilirubin (Negative) Small H Urine Urobilinogen (Up TO 0.2) EU/dL 0.2 Ur Leukocyte Esterase (Negative) Negative Urine RBC (0-2) HPF 0-2 Urine WBC (0-5) HPF Negative Ur Epithelial Cells (Negative) HPF Rare Urine Crystals (Negative) HPF Negative Urine Bacteria (Negative) HPF Negative Urine Casts (Negative) LPF 0-2 Hyaline Urine Mucus (Negative) Moderate Ur Culture Indicated? No Urine Glucose (Negative) mg/dL Negative PAWSS Have you Been Recently Intoxicated or Drunk Within the Last 30 days?: No Have you Ever Experienced Previous Episodes of Alcohol Withdrawal?: No Have you ever Experienced Withdrawal Seizures?: No Have you ever Experienced Delirium Tremens(DT)s?: No Have you ever undergone Alcohol Rehabilitation Treatment (i.e, inpt ot outpatient treatment programs)?: No Have you ever Experienced Blackouts?: No Have you ever Combined Alcohol with other Downers within the last 90 days?: No Have you ever Combined Alcohol with any other Substance of Abuse during the last 90 days?: No Positive Blood Alcohol level on Presentation? [PCS.BAL]: No Evidence of Increased Autonomic Activity (i.e. HR>120, tremor, sweating, agitation, nausea)?: No Result: 0
--- NOTE | 2022-01-25 12:41 | DI.CT_ITS ---
Exam(s) CT ABDOMEN PELVIS WO EXAM: CT ABDOMEN PELVIS WO CLINICAL HISTORY: right flank at abdominal pain, hx of kidney stone. TECHNIQUE: Imaging Protocol: Axial computed tomography images with coronal and sagittal reformatted images were created and reviewed. Oral: no COMPARISON: CT CT ABDOMEN PELVIS WO from 02/26/2021 FINDINGS: ABDOMEN: Lung Bases: Normal where visualized. Liver: Normal density. No measurable mass. Gallbladder and biliary tract: No radiodense calculus or dilation. Pancreas: Normal density, no abnormal calcifications or inflammatory process. Spleen: Normal. Kidneys: Normal size, contour and axis. 4 millimeters stone lower pole right kidney. Mild right hydr onephrosis. The right ureter is dilated down to the ureterovesical junction where there is a 4 jessica meter obstructing stone. This stone has been present since the previous exam. There is minimal stra nding around the right kidney. No left sided renal or ureteral calculi are seen. No masses seen. Adrenal glands: No masses seen. Lymph nodes: Within normal limits. Abdominal Aorta: Abdominal portion non-dilated. PELVIS: Bladder: The urinary bladder is nearly empty but unremarkable. Bowel: No obstruction or bowel wall th ickening. Peritoneal cavity: No ascites, collection or mesenteric inflammatory response. Reproductive organs: Within normal limits. Bones: Within normal limits. IMPRESSION: 4 millimeter stone at the ureterovesical junction causing mild right hydronephrosis. [address] one lower pole right kidney. Both of these findings appear unchanged from prior. Results of this exam have been verbally communicated with emergency department provider. RADIATION DOSE DELIVERED: 511.21mGy.cm Total DLP DATA REPOSITORY: All CT scans at this facility are submitted to the National Radiology Data Registry (NRDR) Dose Index Registry (DIR) with the [employer] (ACR). RADIATION OPTIMIZATION: All CT scans at this facility use at least one of these dose optimization te chniques: automated exposure control; mA and/or kV adjustment per patient size (includes targeted exa ms where dose is matched to clinical indication); or iterative reconstruction.
[2022-01-25 13:18] VITALS: BP 133/72; PULSE 105; RESP 17; TEMP 37.2; O2SAT 98
--- NOTE | 2022-01-25 13:18 | NUR.NOTE ---
Nursing Note: Appt January 26 @ 8479 w/Claudine Buchanan, [facility]. Mercedes Herrera
[2022-01-25 13:23] VITALS: BP 133/72; PULSE 105; RESP 17; TEMP 37.2; O2SAT 98
== END 2022-01-25 13:25 | disposition home or self-care (01) ==
PROVIDERS: Emergency Provider Emergency Medicine; PCP Nurse Practitioner Family
DX: N13.2 Hydronephrosis with renal and ureteral calculous obstruction (principal); Z87.442 Personal history of urinary calculi
CPT/HCPCS: 36415; 80053; 96361; 96374; 96375; 99284; 74176; 81003; 81015; 85025; J1885; J2270; J2405

== ENCOUNTER 2022-01-29 02:14 | Outpatient (CLI) | payer OTHER, SELFPAY ==
[2022-01-29 10:22] LABS: Source Nasal/Nares
[2022-01-29 13:14] LABS: COVID-19 PCR Negative (Negative)
== END 2022-01-29 02:15 | disposition home or self-care (01) ==
LOC: LBO 02:14
PROVIDERS: PCP Nurse Practitioner Family; Visit Provider Urology
DX: Z20.822 Contact with and (suspected) exposure to COVID-19 (principal); Z01.818 Encounter for other preprocedural examination
CPT/HCPCS: 87635

== ENCOUNTER 2022-02-01 08:08 | Day surgery (SDC) | payer OTHER, SELFPAY ==
[2022-02-01] VITALS (7 sets, daily range): BP systolic 96–132; BP diastolic 50–74; PULSE 49–104; RESP 16–18; TEMP 36.3–37; O2SAT 98–100; BMI 17.9
--- NOTE | 2022-02-01 08:11 | W.ANESPRE ---
General Info Date of Service Date Performed: 02/01/22 Height: 5 ft 7 in Weight: 52 kg Body Mass Index (BMI): 17.9 Surgical Procedure: Operation Date: 02/01/22 10:10 Proposed Procedure Side Surgeon p Cystoscopy/Retrograde/Ureteroscopy/Stone Manipulation Right Berry Ortega MD Meds Allergies and Home Medications Allergies Allergy/AdvReac Type Severity Reaction Status Date / Time shellfish derived Allergy Severe Anaphylaxis Verified 02/01/22 08:26 Penicillins Allergy Mild Verified 02/01/22 08:26 Home Medication Medication Instructions Recorded lorazepam 0.5 mg tablet (Ativan) 0.5 mg PO BID PRN 01/26/22 buspirone 7.5 mg tablet 7.5 mg PO BID #60 tab 01/27/22 trazodone 50 mg tablet 50 mg PO QHS PRN #30 tab 01/27/22 melatonin 5 mg tablet 5 mg PO HS PRN 01/28/22 PFSH Active Problems Active Problems: Problem Status Onset Code Diarrhea R19.7 Family history of colon cancer Z80.0 Anxiety F41.9 Kidney stone N20.0 Hydronephrosis N13.30 Panic attack F41.0 Insomnia G47.00 Medical History Medical History Family history of irritable bowel syndrome Kidney stone on right side Surgical History Surgical History History of colonoscopy No significant past surgical history Tobacco Smoking/Tobacco Use Status: Never Passive smoking exposure: Yes Second hand exposure: Yes Alcohol Alcohol Intake: current Alcohol intake frequency: holidays/special occasions only Alcohol type: hard liquor Substance Use Substance use: Never Substance use type: marijuana Details: smoked 2 years ago Vital Signs and Lab Results Vital Signs Most Recent Vital Signs in EMR: Temp Pulse Resp BP Pulse Ox 37.0 C 104 H 18 132/74 100 02/01/22 08:17 02/01/22 08:17 02/01/22 08:17 02/01/22 08:17 02/01/22 08:17 Lab Results Blood Type / Crossmatch: No Data to Display Complete Blood Count: White Blood Count 8.40 10^3/uL (4.4-10.8) 01/25/22 11:47 01/25/22 Red Blood Count 4.99 10^6/uL (4.36-5.78) 01/25/22 11:47 01/25/22 Hemoglobin 14.6 g/dL (13.5-17.5) 01/25/22 11:47 01/25/22 Hematocrit 42.3 % (40.0-50.0) 01/25/22 11:47 01/25/22 Platelet Count 310 10^3/uL (130-400) 01/25/22 11:47 01/25/22 Complete Metabolic Panel: Sodium Level 136 mmol/L (136-145) 01/25/22 11:47 01/25/22 Potassium Level 3.3 mmol/L (3.5-5.1) L 01/25/22 11:47 01/25/22 Chloride Level 99 mmol/L (98-107) 01/25/22 11:47 01/25/22 Carbon Dioxide Level 24.3 mmol/L (21.0-32.0) 01/25/22 11:47 01/25/22 Blood Urea Nitrogen 18 mg/dL (7-18) 01/25/22 11:47 01/25/22 Creatinine 1.5 mg/dL (0.70-1.30) H 01/25/22 11:47 01/25/22 Estimated GFR/1.73 m2 56.57 (mL/min/1.73m2) 01/25/22 11:47 01/25/22 Magnesium Level 2.2 mg/dL (1.8-2.4) 01/24/22 14:45 01/24/22 Calcium Level 9.3 mg/dL (8.5-10.1) 01/25/22 11:47 01/25/22 Albumin 4.4 g/dL (3.4-5.0) 01/25/22 11:47 01/25/22 Glucose Level 120 mg/dL (74-106) H 01/25/22 11:47 01/25/22 Liver Function Panel: Alanine Aminotransferase (ALT/SGPT) 16 U/L (16-63) 01/25/22 11:47 01/25/22 Aspartate Amino Transf (AST/SGOT) 17 U/L (15-37) 01/25/22 11:47 01/25/22 Coagulation Panel: D-Dimer 149 ng/mlFEU (<500) 01/24/22 14:45 01/24/22 Cardiac Panel: Troponin I < 50 ng/L (<or=60) 01/24/22 Arterial Blood Gas: No Data to Display Venous Blood Gas: No Data to Display Pancreas Panel: No Data to Display Thyroid Panel: Thyroid Stimulating Hormone (TSH) 1.33 uIU/mL (0.36-3.74) 01/24/22 14:45 01/24/22 Infectious Disease: Coronavirus (COVID-19)(PCR) Negative (Negative) 01/29/22 10:00 01/29/22 Coronavirus 2019 Source Nasal/Nares 01/29/22 10:00 01/29/22 Blood Cultures: No Data to Display Toxicology Panel: No Data to Display Imaging and Studies Imaging and Studies Study information below may be from another EMR and interpreted by another provider. Please see original notes in EMR for more complete details. EKG Summary: 02/14: sinus, LVH, peaked Ts Anesthesia Assessment and Plan Anesthesia History Personal History: No History of General Anesthesia Family History: No Family History of Anesthesia Complications Exercise Tolerance Exercise Tolerance: Metabolic Equivalents>4 Cardiac & Pulmonary Exam Cardiac Exam: Normal S1/S2 Heart Sounds Pulmonary Exam: Clear Bilateral Breath Sounds Implantable Cardiac Device Does patient have a Pacemaker or an ICD?: No Airway Exam Known Difficult Airway: No Mallampati Class: 3 Mouth Opening: Narrow (< 3cm) Thyromental Distance: Greater than 3 cm Neck Range of Motion: Full ROM Neck Circumference: Normal Teeth Condition: Normal Dentition ASA Classification ASA Score: ASA 2 Emergency Case?: No NPO Status NPO Status: NPO Clears >2 hours, Solids >8 hours Anesthesia Plan Resuscitation Status: Full Code Anesthesia Technique: General Anesthesia Airway Planned: LMA Monitors Used: Standard Monitors Preoperative Comments:: 26 yo male for stone Sig PMHx: anxiety, kidney stone/hydro, occ EtOH.
[2022-02-01] MEDS: Lactated Ringers 1,000 ML 80 ML IV (09:46)
[2022-02-01] MEDS: CIPROFLOXACIN 400 MG/200 ML BAG 200 MG IVPB (10:00)
--- NOTE | 2022-02-01 10:59 | HPE_ITS ---
Date of service: 02/01/22 Time of Service: 10:59 Assessment and Plan Assessment and plan (1) Right ureteral calculus: Status: Acute Assessment and plan: We will proceed with ureteroscopy and stone manipulation History of Present Illness History of Present Illness Chief Complaint: Right ureteral stone Narrative: Casey is a 26-year-old male with history of right ureteral stone causing minimal hydronephrosis.? We have been following his right UVJ stone with ultrasounds.? He at times will have no hydronephrosis and then have a flare with renal colic and imaging will show mild hydronephrosis.? We have tried to pass his stone with medical management of use of tamsulosin and time. He was in the emergency room yesterday for extreme right flank pain.? CT was done.? Patient reports that his stone is still in that UVJ area on the right side.? He has not had fevers, chills, vomiting, uncontrolled pain today, gross hematuria or dysuria.? He has been taking increased dosage of tamsulosin 0.8 mg without adverse effects. He does not have a history of gout or parathyroid disease. Review of Systems Narrative: No fevers or chills No vision change or dysphasia No diabetes or thyroid dysfunction No shortness of breath, cough or hemoptysis No chest pain or palpitations No nausea, vomiting, hepatitis, ulcers, jaundice, diarrhea or constipation Anxiety. No seizures, strokes or peripheral neuropathy No bleeding disorders or anemia No gout PFSH All Active Problems (Updated 02/01/22 @ 11:03 by Berry Ortega MD) Right ureteral calculus (Acute) Diarrhea (Acute) Family history of colon cancer (Acute) Anxiety (Chronic) Kidney stone (Chronic) Hydronephrosis (Acute) Panic attack (Acute) Insomnia (Acute) Medical History (Updated 02/01/22 @ 11:03 by Berry Ortega MD) Family history of irritable bowel syndrome Kidney stone on right side Surgical History History of colonoscopy No significant past surgical history Family History Mother Asthma Father No problems noted. Paternal Grandfather Diabetes Hyperlipidemia Paternal Grandmother Colon cancer Depression Hyperlipidemia Social History (Updated 01/22/22 @ 07:41 by Claire Tamra, PA) Smoking/Tobacco Use Status: Never Second Hand Exposure: Yes Smoking risk assessment performed?: Yes Alcohol Intake: current Alcohol Intake frequency: holidays/special occasions only Alcohol type: hard liquor Drug use: Never Details: smoked 2 years ago Caregiver/Support person: No Household members: other Details: roomate Communication Needs: None Pets and animals: Yes Pets and animals: dog(s) Sexually active: No Do you think of yourself as: straight/heterosexual Current gender identity: male What is your relationship status?: never How often do you talk on the phone with friends or family?: three or more times per week How often do you get together with friends or relatives?: once per week How often do you attend congregation or spiritism services?: 1-3 times per year Panel score (0-1 are the most socially isolated patients): 1 What type of physical activity do you participate in: bicycling Duration: 45-60 minutes/day Frequency: daily Karla/Synagogue: Denominational Special karla needs: No Seatbelt use: always Helmet use: Yes Helmet use: sometimes Drive intox or ride w/intox sales route driver: No Do you feel safe at home: Yes Do you feel safe in your relationship?: Yes Meds Allergies and Home Medications Allergies Allergy/AdvReac Type Severity Reaction Status Date / Time shellfish derived Allergy Severe Anaphylaxis Verified 02/01/22 08:26 Penicillins Allergy Mild Verified 02/01/22 08:26 Home Medications Medication Instructions Recorded Confirmed Type lorazepam 0.5 mg tablet (Ativan) 0.5 mg PO BID PRN 01/26/22 02/01/22 History buspirone 7.5 mg tablet 7.5 mg PO BID #60 tab 01/27/22 02/01/22 Rx trazodone 50 mg tablet 50 mg PO QHS PRN #30 tab 01/27/22 02/01/22 Rx melatonin 5 mg tablet 5 mg PO HS PRN 01/28/22 02/01/22 History Exam Const General: cooperative and comfortable Neck Neck: supple Resp Effort & Inspection: normal respiratory effort Auscultation: clear to auscultation bilaterally Cardio Rate: regular rate Rhythm: regular rhythm GI Inspection: normal to inspection Palpation: soft Neuro General: patient alert, patient awake and patient oriented x3 Results Last Vital Signs Temp 37.0 C 02/01/22 08:17 Pulse 104 H 02/01/22 08:17 Resp 18 02/01/22 08:17 BP 132/74 02/01/22 08:17 Pulse Ox 100 02/01/22 08:17
[2022-02-01] MEDS: Omnipaque 300 MG/ML 50 ML BTL (11:39)
[2022-02-01] MEDS: Lidocaine 2% Jelly 6 ML SYR (11:40)
--- NOTE | 2022-02-01 11:42 | DI.RAD_ITS ---
Exam(s) XR RETROGRADE IN OR EXAM: XR RETROGRADE IN OR CLINICAL HISTORY: KIDNEY STONES. TECHNIQUE: Fluoroscopy was provided for the referring physician for guidance with performing retrogr emerson procedure. COMPARISON: No exams were available for comparison FINDINGS: Please see procedure note for details. Fluoro time: 8.2 seconds RADIATION DOSE DELIVERED: rosemary Rosas=1.24 mGy
--- NOTE | 2022-02-01 11:47 | W.PM.DSUDISC ---
Discharge Plan Disposition Patient Disposition: HOME Condition: Stable Discharge Details Reason For Visit: ureteroscopy Attending Provider: Berry Ortega Primary Care Provider: Rajeev Laboy Home Meds and New Rx's Prescriptions: No Action buspirone 7.5 mg tablet 7.5 mg PO BID Qty: 60 0RF trazodone 50 mg tablet 50 mg PO QHS PRN (Reason: sleep) Qty: 30 0RF lorazepam [Ativan] 0.5 mg tablet 0.5 mg PO BID [id number] melatonin 5 mg Tablet 5 mg PO HS [id number] Discharge Instructions Additional Instructions: no need to strain urine followup 6 to 8 weeks with renal US Activity:: Activity as Tolerated Shower/Bathe:: 24 hours Diet:: As Tolerated Discharge Orders Discharge Orders: Discharge Order (Routine); Ordered 02/01/22 Ordered By: Berry Ortega DS: Diagnosis Discharge Diagnosis (1) Right ureteral calculus: Status: Acute
--- NOTE | 2022-02-01 11:55 | ROE_ITS ---
Date of service: 02/01/22 Time of Service: 11:55 Operative Note Operative Note DATE OF PROCEDURE: 02/01/22 PRE-OP DIAGNOSIS: Right ureteral stone POST-OP DIAGNOSIS: same PROCEDURE: cystoscopy, right retrograde pyelogram, right ureteroscopy with stone extraction SURGEON: Berry Ortega ANESTHESIA TYPE: General LMA/ETT Refer to Anesthesia Record ESTIMATED BLOOD LOSS: 0 PATHOLOGY: other (stone for chemical analysis) Patient was transported to: PACU Patient's condition: stable Implants: none Indications: This is a 26-year-old gentleman who was identified as having a right distal ureteral stone nearly a year ago. He did not remain symptomatic, but he did not pass the stone either. We had been monitoring him with periodic ultrasound. He did have a recent recurrence of renal colic symptoms and he was again identified as having a right distal ureteral stone. Because he has not passed the stone with conservative management, he presents for stone manipulation Findings: Right distal ureteral stone Procedure Description: The patient was brought to the operating room on 02/01/2022. He was given a dose of preoperative antibiotics. After successful induction of general anesthesia, he was placed in the dorsal lithotomy position. His genitalia was prepped and draped. 2% Xylocaine jelly was instilled into the urethra to act as a local anesthetic. A 22 Sammarinese rigid cystoscope was passed through the urethra into the bladder. The bladder and urethra were inspected with a 30 degree lens. The pendulous, bulbar and membranous urethra appeared normal with no strictures. The bladder neck was entered and the bladder mucosa was inspected. Both ureteral orifices appeared normal with no surrounding edema. No stones or masses were found within the bladder. The right ureteral orifice was cannulated with a 5 Sammarinese access catheter and a retrograde pyelogram was obtained by injecting Omnipaque through the access catheter under fluoroscopic guidance. A right distal filling defect was identified. I then passed a guidewire through the access catheter and advanced the wire up the ureter until the proximal end was seen in the renal pelvis. The access catheter was removed leaving the wire in place. The cystoscope was removed and a semirigid ureteroscope was passed through the urethra into the bladder. I was able to engage the ureteroscope into the right distal ureter. A stone was visualized. The stone was grasped in a [employer] stone basket and extracted in its entirety. The stone was sent to pathology for chemical analysis. Because the stone was removed in 1 pass, it was elected not to place a ureteral stent. The ureteroscope and wire were removed. He tolerated this procedure well with no complications.
--- NOTE | 2022-02-01 12:19 | W.ANESPOSTOP ---
Postoperative Evaluation Date, Time and Location Date Performed: 02/01/22 Time Performed: 12:19 Patient Location: Day Surgery Unit Vital Signs Most Recent Imported Vital Signs: Most Recent Vital Signs Temp Pulse Resp BP Pulse Ox 36.6 C 49 L 16 96/52 L 98 02/01/22 12:02 02/01/22 12:02 02/01/22 12:02 02/01/22 12:02 02/01/22 12:02 Pain Score Most Recent Pain Score: Most Recent Pain Score Pain Level 0 02/01/22 12:02 Assessment Mental Status: Awake (Alert & Oriented to Patient Baseline) Airway and Respiratory Function: Patent airway with normal (patient baseline) respiratory exam Cardiovascular Function: Hemodynamically Stable Hydration Status: Adequately Hydrated Nausea & Vomiting: No Nausea or Vomiting Pain: Pain is tolerable per patient Peripheral Nerve Block: Patient did not receive a nerve block
[2022-02-01] MEDS: Phenazopyridine 200 MG TAB PO (12:46)
[2022-02-15 11:55] LABS: Source: Right Ureter
== END 2022-02-01 13:10 | disposition home or self-care (01) ==
PROVIDERS: PCP Nurse Practitioner Family; Visit Provider Urology
PROC: (CPT 52352; principal; 2022-02-01 10:00)
DX: N20.1 Calculus of ureter (principal); G47.00 Insomnia, unspecified; F41.0 Panic disorder [episodic paroxysmal anxiety]
CPT/HCPCS: 52352; 74420; 82365; J0744; J1100; J1885; J2405; J2704; Q9967

== ENCOUNTER 2022-03-01 10:44 | Day surgery (SDC) | payer OTHER, SELFPAY ==
--- NOTE | 2022-03-01 06:42 | W.ANESPRE ---
General Info Date of Service Date Performed: 03/01/22 Height: 5 ft 7 in Weight: 52 kg Body Mass Index (BMI): 17.9 Surgical Procedure: Operation Date: 03/01/22 11:50 Proposed Procedure Side Surgeon p Colonoscopy Tiffanie Ng MD Meds Allergies and Home Medications Allergies Allergy/AdvReac Type Severity Reaction Status Date / Time shellfish derived Allergy Severe Anaphylaxis Verified 03/01/22 11:11 Penicillins Allergy Mild Verified 03/01/22 11:12 Home Medication Medication Instructions Recorded melatonin 5 mg tablet 5 mg PO HS PRN 01/28/22 bisacodyl 5 mg tablet,delayed 5 mg PO ONCE #4 tabs 02/26/22 release (Dulcolax (bisacodyl)) polyethylene glycol 3350 17 17 g PO ONCE #238 grams 02/26/22 gram/dose oral powder Current Visit Medications: Current Medications Generic Name Dose Route Start Last Admin Trade Name Freq PRN Reason Stop Dose Admin Ringer's Solution 1,000 mls @ 80 mls/hr 03/01/22 06:00 IV 03/25/22 23:59 INFUSION YOSELYN IV Miscellaneous Supplies 1 each 03/01/22 06:00 Iv Access IV 03/25/22 23:59 DIRECTED YOSELYN Sodium Chloride 0 ml 03/01/22 06:00 Normal Saline Flush 10 Ml Syr IV 03/25/22 23:59 PRN PRN Sodium Chloride 0 ml 03/01/22 06:00 Normal Saline 10 Ml Vial IJ 03/25/22 23:59 DIRECTED PRN Sterile Water 0 ml 03/01/22 06:00 Water,Injection,Sterile 10 Ml Vial IJ 03/25/22 23:59 DIRECTED PRN PFSH Active Problems Active Problems: Problem Status Onset Code Diarrhea R19.7 Family history of colon cancer Z80.0 Medical History Medical History Anxiety Family history of irritable bowel syndrome Hydronephrosis Insomnia Kidney stone Panic attack Right ureteral calculus Surgical History Surgical History (Updated 03/01/22 @ 11:13 by Claudia Bingham) History of colonoscopy Hx of kidney removal No significant past surgical history Tobacco Smoking/Tobacco Use Status: Never Passive smoking exposure: Yes Second hand exposure: Yes Alcohol Alcohol Intake: current Alcohol intake frequency: holidays/special occasions only Alcohol type: hard liquor Substance Use Substance use: Never Vital Signs and Lab Results Lab Results Blood Type / Crossmatch: No Data to Display Complete Blood Count: No Data to Display Complete Metabolic Panel: No Data to Display Liver Function Panel: No Data to Display Coagulation Panel: No Data to Display Cardiac Panel: No Data to Display Arterial Blood Gas: No Data to Display Venous Blood Gas: No Data to Display Pancreas Panel: No Data to Display Thyroid Panel: No Data to Display Infectious Disease: No Data to Display Blood Cultures: No Data to Display Toxicology Panel: No Data to Display Imaging and Studies Imaging and Studies Study information below may be from another EMR and interpreted by another provider. Please see original notes in EMR for more complete details. EKG Summary: 02/14: sinus, LVH, peaked Ts Anesthesia Assessment and Plan Anesthesia History Personal History: No History of Anesthesia Complications Family History: No Family History of Anesthesia Complications Exercise Tolerance Exercise Tolerance: Metabolic Equivalents>4 Pertinent Negatives Pertinent Negatives: No Symptoms of GERD Cardiac & Pulmonary Exam Cardiac Exam: Normal S1/S2 Heart Sounds Pulmonary Exam: Clear Bilateral Breath Sounds Implantable Cardiac Device Does patient have a Pacemaker or an ICD?: No Airway Exam Known Difficult Airway: No Mallampati Class: 1 Mouth Opening: Normal (> 3cm) Thyromental Distance: Greater than 3 cm Neck Range of Motion: Full ROM Neck Circumference: Normal Teeth Condition: Normal Dentition ASA Classification ASA Score: ASA 2 Emergency Case?: No NPO Status NPO Status: NPO Clears >2 hours, Solids >8 hours Anesthesia Plan Resuscitation Status: Full Code Anesthesia Technique: General Anesthesia Airway Planned: Natural Airway Monitors Used: Standard Monitors Preoperative Comments:: 26 yo male for colonoscopy. Sig PMHx: anxiety, kidney stone/hydro, occ EtOH. Previous Anes: LMA 4
--- NOTE | 2022-03-01 07:11 | W.PREOPHP ---
Assessment and Plan Assessment and plan (1) Diarrhea: Status: Acute Assessment and plan: A// Patient appears nontoxic and in no apparent distress.? Patient has had intermittent bowel fluctuations throughout his entire life.? He is concerned for possible IBS versus colon cancer.? Discussed proceeding with stool studies to rule out bacterial pathogens as well as ova and parasites.? He will try to complete this prior to leaving for his trip later today if not he will complete this when he returns.? Discussed making some diet changes, based on the handouts given to include increasing fiber intake and avoiding possible diarrhea triggering foods.? While on his trip encouraged patient to consider using Pepto-Bismol as needed for abdominal cramping and diarrhea. Patient agreeable with the plan of diet changes and stool studies.? We will follow-up after his trip. Education handouts given regarding diet options/suggestions while having diarrhea as well as a high fiber diet. Patient is going to try to increase his fiber intake and he will consider use of OTC psyllium husk fiber supplement. Also ordered Banatrol supplement. Strongly encouraged him to complete the stool studies for bacteria, ova and parasites.? Of note patient is going on a trip leaving today and will not return until January 30, so he will attempt to complete the stool studies when he returns. Stools studies were all negative. Elimination diet did not help his symptoms. Discussed Colonoscopy under sedation. Risks, benefits and complications have been reviewed. Complications include but are not limited to bleeding, pain, perforation, missed small lesion/polyp, sore throat, aspiration and adverse reaction to the medications. Questions were entertained and answered to their satisfaction and they wished to proceed. No guarantees were given or implied. (2) Family history of colon cancer: Status: Acute History of Present Illness Narrative: 26-year-old male presents for further evaluation of fluctuations in his bowel habits.? Patient reports that he will have symptoms of constipation for 2 to 3 days followed by 1 to 2 days of severe diarrhea.? When this occurs he it is accompanied by nausea and abdominal discomfort, this sometimes improves following the bowel movement.? He states that he is attempted to change his diet minimally by recently switching over to whole wheat products.? He describes his diet as consisting of bread, lunch meat and fruits and vegetables.? Of note he states that he had a colonoscopy a number of years ago at [facility] when he was much younger due to similar symptoms.? He reports a family history of colon cancer in his paternal grandmother, paternal uncle and paternal aunt.? He reports a history of IBS in both his father and paternal grandfather. Of note patient states that he is at baseline a very stressed and anxious person and that he has been very busy with work.? He works for [employer].? Patient denies any fevers, chills or night sweats.? He denies any use of marijuana or any other illegal drugs. Patient acknowledges that his primary care provider had ordered stool studies however he was unable to complete due to his schedule.? Patient is leaving on an upcoming trip later today and will not be returning until January 30. Review of Systems All systems reviewed & are unremarkable except as noted in HPI and below PFSH All Active Problems Diarrhea (Acute) Family history of colon cancer (Acute) Medical History Anxiety Family history of irritable bowel syndrome Hydronephrosis Insomnia Kidney stone Panic attack Right ureteral calculus Surgical History History of colonoscopy Hx of kidney removal No significant past surgical history Family History Mother Asthma Father No problems noted. Paternal Grandfather Diabetes Hyperlipidemia Paternal Grandmother Colon cancer Depression Hyperlipidemia Social History Smoking/Tobacco Use Status: Never Second Hand Exposure: Yes Smoking risk assessment performed?: Yes Alcohol Intake: current Alcohol Intake frequency: holidays/special occasions only Alcohol type: hard liquor Drug use: Never Substance use type: does not use Details: alcohol: t-2 Caregiver/Support person: No Household members: other Details: roomate Communication Needs: None Pets and animals: Yes Pets and animals: dog(s) Sexually active: No Do you think of yourself as: straight/heterosexual Current gender identity: male What is your relationship status?: never How often do you talk on the phone with friends or family?: three or more times per week How often do you get together with friends or relatives?: once per week How often do you attend oriental orthodox or bahai services?: 1-3 times per year Panel score (0-1 are the most socially isolated patients): 1 What type of physical activity do you participate in: bicycling Duration: 45-60 minutes/day Frequency: daily Karla/Sikhism: Congregational Special karla needs: No Seatbelt use: always Helmet use: Yes Helmet use: sometimes Drive intox or ride w/intox tour bus driver/guide: No Do you feel safe at home: Yes Do you feel safe in your relationship?: Yes Meds Allergies and Home Medications Allergies Allergy/AdvReac Type Severity Reaction Status Date / Time shellfish derived Allergy Severe Anaphylaxis Verified 03/01/22 11:11 Penicillins Allergy Mild Verified 03/01/22 11:12 Home Medications Medication Instructions Recorded Confirmed Type melatonin 5 mg tablet 5 mg PO HS PRN 01/28/22 03/01/22 History bisacodyl 5 mg tablet,delayed 5 mg PO ONCE #4 tabs 02/26/22 03/01/22 Rx release (Dulcolax (bisacodyl)) polyethylene glycol 3350 17 17 g PO ONCE #238 grams 02/26/22 03/01/22 Rx gram/dose oral powder Exam Const General: healthy appearing, comfortable and no acute distress Orientation: alert and oriented x3 HENMT Head: normocephalic and atraumatic Resp Effort & Inspection: normal respiratory effort Auscultation: clear to auscultation bilaterally Cardio Rate: regular rate Rhythm: regular rhythm Heart Sounds: no gallops, no murmurs and no rubs
--- NOTE | 2022-03-01 07:15 | COLE_ITS ---
Colonoscopy Report Date of procedure: 03/01/22 Pre-op diagnosis general: diarrhea Post-op diagnosis procedure note: same Procedure: Colonoscopy with bx Surgeon: Tiffanie Ng Anesthesia Type: General:No Airway Estimated blood loss (mL): 3 Pathology: other (multiple randome biopsies of the cecum, ascending, transverse, descending, sigmoid and rectum) Complications: None Disposition: same day Indications: A// Patient appears nontoxic and in no apparent distress.? Patient has had intermittent bowel fluctuations throughout his entire life.? He is concerned for possible IBS versus colon cancer.? Discussed proceeding with stool studies to rule out bacterial pathogens as well as ova and parasites.? He will try to complete this prior to leaving for his trip later today if not he will complete this when he returns.? Discussed making some diet changes, based on the handouts given to include increasing fiber intake and avoiding possible diarrhea triggering foods.? While on his trip encouraged patient to consider using Pepto- Bismol as needed for abdominal cramping and diarrhea. Patient agreeable with the plan of diet changes and stool studies.? We will follow-up after his trip. Education handouts given regarding diet options/suggestions while having diarrhea as well as a high fiber diet. Patient is going to try to increase his fiber intake and he will consider use of OTC psyllium husk fiber supplement. Also ordered Banatrol supplement. Strongly encouraged him to complete the stool studies for bacteria, ova and parasites.? Of note patient is going on a trip leaving today and will not return until January 30, so he will attempt to complete the stool studies when he returns. Stools studies were all negative. Elimination diet did not help his symptoms. Discussed Colonoscopy under sedation. Risks, benefits and complications have been reviewed. Complications include but are not limited to bleeding, pain, perforation, missed small lesion/polyp, sore throat, aspiration and adverse reaction to the medications. Questions were entertained and answered to their satisfaction and they wished to proceed. No guarantees were given or implied. Prep: Miralax/Dulcolax Procedure Start Time: 13:59 Procedure End Time: 14:28 Retraction Time: 8 minutes Findings: Normal appearing colon Procedure Description: After informed consent was obtained the patient was taken to the procedure room and placed in a left decubitous position. Monitors were applied and a time out was done. The patients name, date of , procedure, allergies to medications and metal in their body was reviewed. The patient was then sedated. Once sedated and comfortable a rectal exam was done. External exam was normal. Internal exam revealed a normal sphincter tone and no palpable masses. The prostate felt normal. The scope was then introduced and retro-flexed. No internal hemorrhoids, polyps or masses were identified on retro-flexion. The scope was then advanced to the cecum without difficulty. The ileocecal vlave and appendiceal orifice were identified. The prep was adequate. The scope was then slowly retracted over 8 minutes back into the rectum. There were no polyps and no dverticula. Randome bopsies were done of the cecum, ascending, transverse, descendng, sigmod and rectum to rule out microscopic colitis. The scope was removed and the patient was woken up and taken back to Same day surgery in stable condition. The patient tolerated the procedure well and there were no immediate complications. Follow up: 2 weeks
--- NOTE | 2022-03-01 07:16 | W.PM.DSUDISC ---
Discharge Plan Disposition Patient Disposition: HOME Condition: Good Discharge Details Reason For Visit: Colonoscopy Attending Provider: Tiffanie Ng Primary Care Provider: Rajeev Laboy Home Meds and New Rx's Prescriptions: Continued melatonin 5 mg Tablet 5 mg PO HS PRN Discontinued bisacodyl [Dulcolax (bisacodyl)] 5 mg tablet,delayed release (DR/EC) 5 mg PO ONCE Qty: 4 0RF Rx Instructions: Take according to provider's instructions for colonoscopy prep. polyethylene glycol 3350 17 gram/dose powder 17 g PO ONCE Qty: 238 0RF Rx Instructions: To be taken as directed by prescriber's office for colonoscopy prep. Discharge Instructions Additional Instructions: Findings: normal appearing large intestine Follow up: I will call you with results Please call if you develop: fevers >101.5 Nausea or Vomiting Abdominal pain that is not transient Rectal bleeding that is more then a tbsp A hard abdomen and inability to pass gas DAY SURGERY UNIT POST ENDOSCOPY INSTRUCTIONS Instructions for everyone who is given Anesthesia: For your safety, please do the following for the next 24 Hours: a. Do not drive or operate dangerous equipment b. Do not drink alcohol beverages or use any recreational drugs for the first 24 hours or while taking pain medications. The medications in your body may have a reaction that can be dangerous. c. Do not make any important decisions or sign any important papers 1. Generally there are no restrictions on your activity after a day or so has gone by, but you may feel a bit fatigued for a few days. 2. After you arrive home you may have a light meal and return to a normal diet as you can tolerate it without feeling sick to your stomach. 3. After surgery, you may feel pain or discomfort. This should be only transient, but if it persists please contact your doctor. 4. If there are any questions regarding the findings of your procedure, please feel free to contact your doctor. 6. If you are unable to contact your doctor with a problem, contact the hospital at [phone]. 7. Continue all your regular medications unless directed otherwise. I understand the above instructions and have no questions. Signature of Patient or Responsible Adult Escort Date/Time Name of Responsible Adult Escort Signature of Nurse Date/Time Activity:: Activity as Tolerated Diet:: As Tolerated Discharge Orders Discharge Orders: Discharge Order (Routine); Ordered 03/01/22 Ordered By: Tiffanie Ng DS: Diagnosis Discharge Diagnosis (1) Diarrhea: Status: Acute (2) Family history of colon cancer: Status: Acute
[2022-03-01 11:16] VITALS: BP 136/67; PULSE 111; RESP 16; TEMP 36.4; O2SAT 99
[2022-03-01] MEDS: Lactated Ringers 1,000 ML 80 ML IV (11:35)
--- NOTE | 2022-03-01 13:11 | W.ANESPOSTOP ---
Postoperative Evaluation Date, Time and Location Date Performed: 03/01/22 Patient Location: Day Surgery Unit Vital Signs Most Recent Imported Vital Signs: Most Recent Vital Signs Temp Pulse Resp BP Pulse Ox 36.4 C L 111 H 16 136/67 99 03/01/22 11:16 03/01/22 11:16 03/01/22 11:16 03/01/22 11:16 03/01/22 11:16 Pain Score Most Recent Pain Score: Most Recent Pain Score Pain Level 0 03/01/22 11:16
[2022-03-01 13:45] VITALS: BMI 17.9
--- NOTE | 2022-03-01 14:20 | BOWEL_PTH ---
PATIENT: Casey Burden LOC: [facility] U#:[id number] AGE/SX: 26/M ROOM: RE03/01/[address]: Tiffanie Ng MD : [id number] BED: DIS: 03/01/2022 SPEC #: [id number] RECD: 03/01/22 15:19 STATUS: BEVERLEY RE #: [id number] CHRISTA: 03/01/22 14:[address]: Tiffanie Ng DEPT: Surgical Specimen RECD BY: Nikki Ayala ENTERED: 03/01/22 15:21 SP TYPE: Bowel OTHR DR: Rajeev Laboy, MEDICAL EDUCATION MANAGER Tissues: 1 - BIOPSY BOWEL 2 - BIOPSY BOWEL 3 - BIOPSY BOWEL 4 - BIOPSY BOWEL 5 - BIOPSY BOWEL Procedures: GROSS AND MICRO LEVEL 4 Comments: [id number]
--- NOTE | 2022-03-01 14:36 | W.ANESPOSTOP ---
Postoperative Evaluation Date, Time and Location Date Performed: 03/01/22 Time Performed: 14:37 Patient Location: Day Surgery Unit Vital Signs Most Recent Imported Vital Signs: Most Recent Vital Signs Temp Pulse Resp BP Pulse Ox 36.4 C L 111 H 16 136/67 99 03/01/22 11:16 03/01/22 11:16 03/01/22 11:16 03/01/22 11:16 03/01/22 11:16 Pain Score Most Recent Pain Score: Most Recent Pain Score Pain Level 0 03/01/22 11:16 Assessment Mental Status: Awake (Alert & Oriented to Patient Baseline) Airway and Respiratory Function: Patent airway with normal (patient baseline) respiratory exam Cardiovascular Function: Hemodynamically Stable Hydration Status: Adequately Hydrated Nausea & Vomiting: No Nausea or Vomiting Pain: Pt. Denies Any Pain Peripheral Nerve Block: Patient did not receive a nerve block
[2022-03-01 14:41] VITALS: BP 117/74; PULSE 74; RESP 17; TEMP 36.6; O2SAT 97
[2022-03-01 15:00] VITALS: BP 108/67; PULSE 57; RESP 17; TEMP 36.6; O2SAT 97
== END 2022-03-01 15:20 | disposition home or self-care (01) ==
PROVIDERS: PCP Nurse Practitioner Family; Visit Provider Surgery
PROC: 0DJD8ZZ Inspection of Lower Intestinal Tract, Via Natural or Artificial Opening Endoscopic (ICD-10-PCS; CPT 45378; principal; 2022-03-01 11:45)
DX: R19.7 Diarrhea, unspecified (principal); Z80.0 Family history of malignant neoplasm of digestive organs; F41.0 Panic disorder [episodic paroxysmal anxiety]; G47.00 Insomnia, unspecified; K63.89 Other specified diseases of intestine
CPT/HCPCS: 45380; 88305

== ENCOUNTER → 2022-07-28 11:15 | Outpatient (CLI) | payer OTHER, SELFPAY ==
--- NOTE | 2022-07-28 10:45 | DI.RAD_ITS ---
Exam(s) XR ABDOMEN FLAT PLATE EXAM: 2D digital imaging was performed. CLINICAL HISTORY: R flank pain. Hx of R lower pole stone on CT Z87.442 HX URINARY CALCULI. COMPARISON: No exams were available for comparison TECHNIQUE: Supine views of the abdomen performed. FINDINGS: BOWEL GAS PATTERN: Nondistended. CALCIFICATIONS: No radiopaque calcifications visible. Both kidneys obscured by overlying stool.. OSSEOUS STRUCTURES: Normal for age. OTHER FINDINGS: None. IMPRESSION: 1. Nonobstructive bowel gas pattern. 2. No visible radiopaque calculi. DATA REPOSITORY: RADIATION DOSE DELIVERED:
== END ==
PROVIDERS: PCP Nurse Practitioner Family; Visit Provider Nurse Practitioner Gerontology
DX: Z87.442 Personal history of urinary calculi (principal)
CPT/HCPCS: 74018

== ENCOUNTER 2022-08-26 09:13 | Outpatient (CLI) | payer OTHER, SELFPAY ==
[2022-08-26 10:03] LABS: Anion Gap 8.1 mmol/L (3-11); BUN 19 mg/dL (7-18); CO2 28.9 mmol/L (21.0-32.0); CREATININE 1.3 mg/dL (0.70-1.30); Calcium 9.3 mg/dL (8.5-10.1); Chloride 103 mmol/L (98-107); Estimated GFR 77.22 (mL/min/1.73m2); Glucose 104 mg/dL (74-106); Potassium 3.6 mmol/L (3.5-5.1); Sodium 140 mmol/L (136-145)
[2022-08-27 12:43] LABS: Lyme Ab w Rflx to Lyme Confirm Negative (Negative)
[2022-08-30 17:04] LABS: Anaplasma phagocytophilum Negative (Negative); B. miyamotoi PCR Negative (Negative); Babesia divergens/MO-1 Negative (Negative); Babesia duncani Negative (Negative); Babesia microti Negative (Negative); Ehrlichia chaffeensis Negative (Negative); Ehrlichia ewingii/canis Negative (Negative); Ehrlichia muris eauclairensis Negative (Negative)
== END 2022-08-26 09:14 | disposition home or self-care (01) ==
LOC: LBO 09:20
PROVIDERS: PCP Nurse Practitioner Family; Visit Provider Nurse Practitioner Family
DX: G25.5 Other chorea (principal); G25.2 Other specified forms of tremor
CPT/HCPCS: 36415; 80048; 87798; 86618

== ENCOUNTER 2022-10-03 07:37 | Emergency (ER) | payer OTHER, SELFPAY ==
[2022-10-03 07:41] VITALS: BP 157/75; PULSE 93; RESP 20; TEMP 36.8; O2SAT 96
[2022-10-03 07:43] VITALS: RESP 16
--- NOTE | 2022-10-03 07:55 | W.ED.GENAD ---
Discharge Plan Disposition Patient Disposition: Home Condition: Stable Discharge Details Clinical Impression: Anxiety, Difficulty sleeping Primary Care Provider: Rajeev Laboy ED Provider: Dunia Murray Home Meds and New Rx's Prescriptions: New lorazepam [Ativan] 1 mg tablet 1 mg PO QHS PRN (Reason: anxiety) 4 Days Qty: 5 0RF Continued melatonin 5 mg Tablet 5 mg PO HS PRN Discharge Instructions Instructions: Anxiety (ED) Additional Instructions: I am primarily concerned that you are lack of sleep as greatly increasing your anxiety. Please encourage hydration. Please try to have good sleep hygiene as we discussed. Try to avoid screens at least 30 minutes to 1 hour prior to bed. Try to be in calm, dark, quiet environment. You may use the Ativan as prescribed to help with sleep and anxiety for this period of time but long-term should discuss this further with your primary care provider. Please call your primary care provider tomorrow morning to schedule follow-up as soon as possible. Please also reach out to the mental health providers as was discussed by the mental health team. If you have any further mental health questions or increased concerns you may contact them anytime at their emergent line at [phone]. If you develop thoughts of self-harm, thoughts of harming others please seek care emergently once again. Stand Alone Forms: Work Release Referrals: Rajeev Laboy, EXECUTIVE PRODUCER [Primary Care Provider] - Discharge Data Discharge Date/Time-TO BE ENTERED AT DEPARTURE: 10/03/22 11:05 Medical Decision Making Patient is a pleasant 27-year-old male with past medical history of anxiety and panic attacks, accompanied by his mom, with chief complaint of anxiety and insomnia. Patient states that this has been a chronic issue for him but was relatively well controlled since increased symptoms last January. Patient was seen in the emergency department at that time. At that time, the patient had been prescribed trazodone by his primary care provider but he was able to self regulate and did not begin the medication. 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 This increases insomnia and the patient began taking the trazodone about 6 days ago. He states that this did help with the sleep but caused him to feel generally unwell throughout the course of the day and feel like he is having some blurred vision. He states that since stopping the medication a few days ago this has completely subsided. However, patient states that he has not been able to sleep more than 2 hours for several days. He denies any suicidal ideation. Denies harming others. Feels safe at work and at home. Resides with his mom who does seem to be quite supportive. On exam, patient appears very anxious for. He is tearing, shaking and jittery. Has very limited eye contact and is clasping his hands. He does not appear to be in any acute respiratory distress. No rashes visualized. No evidence of self-harm. Lungs are clear, normal cardiac exam. Patient has done well with Ativan in the past. He has hesitant to try other medications as he had side effects from others historically. We will give a dose of Ativan now. Patient does not have mental health provider, will also consult with [facility] human services. We will the patient is not actively endorsing any self-harm, his anxiety does seem to be preventing him from being able to perform his typical activities of daily living. This coupled with his insomnia, has been concerned that this may increase and I would like to get him the support that he needs as soon as possible. Patient seen by MH. They discussed OTC options, local MH. They have asked that patient have a week off from work to be able to recover in regard to sleep, and to establish with MH provider. He feels safe to go home. He is feeling sigfnicantly improved, fell asleep for awhile after the Ativan. Patient and mom describe having had similar episode in the past that was greatly exacerbated by sleep interuption. He improved signficantly after a few days of benzo prior to bed. Mom is going to help and keep medications in a safe place. Usage and safety discussed. Strict return precautions discussed. He has emergent contact information for [facility]. Will contact [facility] suggestions to establish care. I also advised f/u with PCP as soon as possible. All of his questions and concerns were addressed, he is in agreement with this plan. HPI General Date/Time Provider Initiated Documentation: 10/03/22 07:40. Limitations to Documentation: no limitations. Information obtained by: patient, family (mom), RN notes reviewed and old records reviewed. History of Present Illness 27 year old M presents to the emergency department with the chief complaint of anxiety, insomnia, described as severe and similar to prior episodes, with intensity rated at 10. and it has been constant. Medication improves symptom(s), (felt improved with Trazadone but difficulty with SE) Other factors that worsen symptoms (lack of sleep) . Patient notes no other symptoms.. Patient did receive the following treatments prior to arrival, none Related Data Home Medications Medication Instructions Recorded Confirmed melatonin 5 mg tablet 5 mg PO HS PRN 01/28/22 10/03/22 lorazepam 1 mg tablet (Ativan) 1 mg PO QHS PRN anxiety 4 days #5 10/03/22 tabs Previous Rx's Medication Instructions Recorded lorazepam 1 mg tablet (Ativan) 1 mg PO QHS PRN anxiety 4 days #5 10/03/22 tabs Allergies Allergy/AdvReac Type Severity Reaction Status Date / Time shellfish derived Allergy Severe Anaphylaxis Verified 10/03/22 07:47 Penicillins Allergy Mild Verified 10/03/22 07:47 General Stated Complaint: Anxiety MICAELA: 3 Review of Systems Constitutional Constitutional: Reports as per HPI and Denies fever(s) Eyes Eyes: Denies change in vision Cardiovascular Cardiovascular: Reports as per HPI, Denies dyspnea and Denies dyspnea on exertion Respiratory Respiratory: Reports as per HPI, Denies cough, Denies dyspnea and Denies dyspnea on exertion Neurologic Neurologic: Denies abnormal movements, Denies abnormal speech and Denies paresthesias PFSH All Active Problems (Updated 10/03/22 @ 10:39 by AC Bro) Difficulty sleeping (Acute) Nasal lesion (Acute) Myoclonic jerking (Acute) Normal neurological exam (Acute) Skin lesion (Acute) Anxiety (Chronic) IBS (irritable bowel syndrome) (Chronic) Diarrhea (Acute) Family history of colon cancer (Acute) Medical History Family history of irritable bowel syndrome Hydronephrosis Kidney stone Panic attack Right ureteral calculus Surgical History History of colonoscopy No significant past surgical history Family History Mother Asthma Father No problems noted. Paternal Grandfather Diabetes Hyperlipidemia Paternal Grandmother Colon cancer Depression Hyperlipidemia Social History Smoking/Tobacco Use Status: Never Second Hand Exposure: Yes Smoking risk assessment performed?: Yes Alcohol Intake: current Alcohol Intake frequency: a few times a week Alcohol type: hard liquor Drug use: Never Substance use type: does not use Details: alcohol: t-2 Caregiver/Support person: No Household members: family and other Details: roomate Communication Needs: None Do you need help understanding health information?: Never Pets and animals: No Sexually active: No Do you think of yourself as: straight/heterosexual Current gender identity: male What is your relationship status?: never How often do you talk on the phone with friends or family?: three or more times per week How often do you get together with friends or relatives?: once per week How often do you attend rastafarian or amish services?: 4 or more times per year Do you belong to any clubs or organized social groups?: no Panel score (0-1 are the most socially isolated patients): 2 What type of physical activity do you participate in: bicycling Duration: 60-90 minutes/day Frequency: 3-4 times per week Karla/Congregational: Amish Special karla needs: No Seatbelt use: always Helmet use: Yes Helmet use: sometimes Drive intox 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 Do you feel safe at home: Yes Do you feel safe in your relationship?: Yes Exam Const General: cooperative, healthy appearing, comfortable, well developed, well groomed and anxious (tearing, shaking) Nutritional Appearance: average body habitus, well nourished and thin Orientation: alert and awake Eyes General: appearance normal, both eyes and all related structures Resp Effort & Inspection: normal respiratory effort, able to speak in complete sentences and no respiratory distress Auscultation: clear to auscultation bilaterally, no rales, no rhonchi and no wheezes Cardio Rate: regular rate Rhythm: regular rhythm Heart Sounds: S1 normal and S2 normal Skin General skin exam: no rashes or lesions noted Trauma: no lacerations or abrasions Neuro General: patient alert and patient awake Cognition: normal cognition Speech: speech normal Gait: normal gait Psych Appearance: grossly normal and well kempt Mental Status: mental status grossly normal Speech and Movement: restless Mood: anxious mood Affect: anxious affect Attitude: avoids eye contact Thought Process: normal Thought Content: normal, no hallucinations, no homicidality and suicidality Insight: fair Judgment: fair Course Vital Signs Vital signs: Vital Signs Temperature 36.8 C 10/03/22 07:41 Pulse 93 H 10/03/22 07:41 Respiratory Rate 20 10/03/22 07:41 Blood Pressure 157/75 H 10/03/22 07:41 Pulse Oximetry 96 10/03/22 07:41 Temperature 36.8 C 10/03/22 07:41 Temperature Source Temporal Artery Scan 10/03/22 07:41 Pulse 93 H 10/03/22 07:41 Respiratory Rate 16 10/03/22 07:43 Respiratory Effort 10/03/22 07:43 Respiratory Depth Normal 10/03/22 07:43 Respiratory Pattern Normal 10/03/22 07:43 Blood Pressure 157/75 H 10/03/22 07:41 Blood Pressure Position Sitting 10/03/22 07:41 Pulse Oximetry 96 10/03/22 07:41 Oxygen Delivery Method Room Air 10/03/22 07:41 Oxygen Flow Rate 0 10/03/22 07:41 PAWSS Have you Been Recently Intoxicated or Drunk Within the Last 30 days?: No Have you Ever Experienced Previous Episodes of Alcohol Withdrawal?: No Have you ever Experienced Withdrawal Seizures?: No Have you ever Experienced Delirium Tremens(DT)s?: No Have you ever undergone Alcohol Rehabilitation Treatment (i.e, inpt ot outpatient treatment programs)?: No Have you ever Experienced Blackouts?: No Have you ever Combined Alcohol with other Downers within the last 90 days?: No Have you ever Combined Alcohol with any other Substance of Abuse during the last 90 days?: No Result: 0
[2022-10-03] MEDS: LORazepam 1 MG TAB PO (08:21)
[2022-10-03 11:05] VITALS: BP 123/59; PULSE 106; RESP 18; TEMP 37; O2SAT 98
--- NOTE | 2022-10-03 11:26 | PDOC.MHCN ---
Date of service: 10/03/22 Time of Service: 11:26 PHQ-9 Over the last 2 weeks, how often have you been bothered by any of the following problems? 1. Little interest or pleasure in doing things: more than half the days 2. Feeling down, depressed, or hopeless: nearly every day 3. Trouble falling or staying asleep, or sleeping too much: nearly every day 4. Feeling tired or having little energy: nearly every day 5. Poor appetite or overeating: not at all 6. Feeling bad about yourself - or that you are a failure or have let yourself and your family down: not at all 7. Trouble concentrating on things, such as reading the newspaper or watching television: nearly every day 8. Moving or speaking so slowly that other people could have noticed? - Or the opposite - being so fidgety or restless that you have been moving around a lot more than usual: more than half the days 9. Thoughts that you would be better off or of hurting yourself in some way: several days Total score: 17 If you checked off any problems, how difficult have these problems made it for you to do your work, take care of things at home, or get along with other people?: somewhat difficult Source: Developed by Drs. Leon Patton, Cristina Rizvi, Tigre Ghotra and colleagues, with an educational leonardo from [employer]. Suicide Severity Rate CSSRS Have you wished you were or wished you could go to sleep and not wake up?: Yes Have you actually had any thoughts of killing yourself?: No CSSRS4 Was this within the past three months?: No Screening Score Total Score: 2 Screening: Positive Mental Health Emergency Note Release [facility] release signed:: Yes Reason for Visit Client presented to the ED with his mother with complaints of poor sleep over the past three days and an increase in Anxiety that present as a vicious cycle per client report. Client has [facility] of [facility] and no previous hospitalizations. In the last 2 weeks has the pt presented for ES prior to today?: Unknown Client Information Client is: New Well Housed: Yes Non Suicidal Self Injury Current: No History: No Safety Risk/Harm to Self or Others Current Ideation to Harm Self or Others: No Risk: Does risk to harm exist?: No Duty to warn indicated: No Asssessment/Mental Status Appearance: Disheveled Attitude: Cooperative and Other (tired ) Behavior: Repetitive movements Speech: Slow and Slurred Affect: Cogruent with mood Mood: Stressed and Anxious Thought process: Goal directed Hallucinations: No Delusions: No Attention: Poor concentration (Due to medication he recently was administered. ) Perception: Not impaired Orientation: Fully orientated Memory: Intact Insight: Good Judgement: Good Neurovegetative Symptoms Sleep: Decrease Appetitie: Decrease Interests: No change Energy: Decrease Libido: Not applicable Substance Use: Do you use nicotine?: Yes Have you used substances in the last 7 days?: No Additional Issues: Assaultive/Threatening Behavior: No Medical Concerns: No Client engaged in active self harm w/weapon: No Threatening to run away: No Child reported abuse/neglect: No Voluntarily presenting for services: Yes Domestic violence is a concern: No Extreme Psychosis or extreme behavior is present: No Impression Client is a 27 year old, single, male who lives iwth his parents and works for [employer]. His mother reported two times, this one included, where the client has struggled with severe anxiety that affects his sleep and then the lack of sleep makes the symptoms of his anxiety worse. The last time this happened was in January and the client was away possibly on vacation and he immediately bought a plane ticket home due to how he was feeling. A few days of Ativan and the client regulated and was back to work and daily life. This pas holiday season the client's scheduled changed to meet the needs of the company's clients and this again put the client in a whirlwind of symptomology. He has not been able to get out of it despite his efforts. The client's lack of sleep, appetite and energy as well as documented history of similar symptoms suggest a diagnosis of at least a major depressive disorder. It is possible that he could have a mood disorder of some kind likely bipolar however, this would need to be carefully assessed by a PMHNP or psychiatrist. Resources Reosurces reviewed and given:: 988, Crisis Bed, Community therapist, [facility] and Other Plan/Disposition Recommended Disposition: PCP/Office visit, Crisis bed, No, [facility] Services [facility] Services: Therapy, Therapy and Psych Screening. Plan: Client was opened to [facility] and intake completed except for signatures as he was too sleepy to do so at the time of the assessment. Client and mother were given resources including handouts on anxiety, grounding and breathing hand outs and sleep hygiene as well as resource [facility] for a possible consult. Client was informed that if his symptoms become worse to come to [facility] and seek a higher level of care. CARE Bed and hospitalization were offered and declined at this time. Client was counseled on OTC medications he could try by shadowing buying intern Edilma Stewart [facility]. Client was given a doctors note to take a week off form work to heal and get back on track. Client is open to an in house referral for counseling.? Person reported agreement to plan: Yes Reports/communication Outcome discussed with: ED/Personnel
== END 2022-10-03 11:05 | disposition home or self-care (01) ==
PROVIDERS: Emergency Provider Physician Assistant; PCP Nurse Practitioner Family
DX: F41.9 Anxiety disorder, unspecified (principal); G47.00 Insomnia, unspecified
CPT/HCPCS: 99283; 99284

== ENCOUNTER 2022-10-21 11:56 | Outpatient (CLI) | payer OTHER, SELFPAY ==
[2022-10-21 11:54] LABS: HGB 14.1 g/dL (13.5-17.5); MCH 29.6 pg (27.0-33.0); MCHC 34.4 % (32.0-36.0); MCV 86 fL (80-95); Platelet Count 227 10^3/uL (130-400); RBC 4.76 10^6/uL (4.36-5.78); RDW 12.5 % (11.8-14.1); RDW-SD 39.8 fL; WBC 4.91 10^3/uL (4.4-10.8)
== END 2022-10-21 11:57 | disposition home or self-care (01) ==
LOC: LBO 12:11
PROVIDERS: PCP Nurse Practitioner Family; Visit Provider Nurse Practitioner Family
DX: R53.83 Other fatigue (principal)
CPT/HCPCS: 36415; 85027

== ENCOUNTER 2022-11-01 03:21 | Outpatient (CLI) | payer OTHER, SELFPAY ==
[2022-11-01 11:26] LABS: ALT 18 U/L (16-63); AST 14 U/L (15-37); Albumin 4.7 g/dL (3.4-5.0); Alkaline Phosphatase 62 U/L (46-116); Anion Gap 5.7 mmol/L (3-11); BUN 14 mg/dL (7-18); Bilirubin, Total 0.7 mg/dL (0.2-1.0); C-Reactive Protein 0.06 mg/dL (0.0-0.3); CO2 30.3 mmol/L (21.0-32.0); CREATININE 1.3 mg/dL (0.70-1.30); Calcium 9.5 mg/dL (8.5-10.1); Chloride 105 mmol/L (98-107); Estimated GFR 77.22 (mL/min/1.73m2); Glucose 90 mg/dL (74-106); Potassium 4.1 mmol/L (3.5-5.1); Sodium 141 mmol/L (136-145); Total Protein 7.4 g/dL (6.4-8.2)
[2022-11-04 09:13] LABS: ANA Interpretation Negative (Negative)
== END 2022-11-01 03:22 | disposition home or self-care (01) ==
LOC: LBO 03:21
PROVIDERS: PCP Nurse Practitioner Family; Visit Provider Surgery
DX: R53.83 Other fatigue (principal); F41.8 Other specified anxiety disorders; G47.00 Insomnia, unspecified; G47.8 Other sleep disorders; K58.9 Irritable bowel syndrome, unspecified; K59.4 Anal spasm; R19.7 Diarrhea, unspecified; Z80.0 Family history of malignant neoplasm of digestive organs
CPT/HCPCS: 36415; 80053; 84443; 86038; 86140

== ENCOUNTER 2022-12-01 10:33 | Outpatient (CLI) | payer OTHER, SELFPAY ==
[2022-12-01 10:59] LABS: Abs Immature Grans 0.01 10^3/uL (0.0-0.06); Absolute Basophil Count 0.06 10^3/uL (0.0-0.2); Absolute Eosinophil Count 0.82 10^3/uL (0.0-0.7); Absolute Monocyte Count 0.31 10^3/uL (0.1-0.8); Absolute Neutrophil Count 2.12 10^3/uL (1.2-6.7); Basophils % 1.2; HCT 43.2 % (40.0-50.0); HGB 14.5 g/dL (13.5-17.5); Immature Grans % 0.2; Lymphocytes % 31.1; MCH 29.4 pg (27.0-33.0); MCHC 33.6 % (32.0-36.0); MCV 87 fL (80-95); MPV 8.7 fL (8.0-11.0); Monocytes % 6.4; Neutrophils % 44.1; Platelet Count 229 10^3/uL (130-400); RBC 4.94 10^6/uL (4.36-5.78); RDW-SD 41.7 fL; WBC 4.82 10^3/uL (4.4-10.8)
[2022-12-01 11:02] LABS: ESR < 1 mm/hr (0-15)
[2022-12-01 12:15] LABS: ALT 17 U/L (16-63); AST 15 U/L (15-37); Albumin 4.8 g/dL (3.4-5.0); Alkaline Phosphatase 58 U/L (46-116); Anion Gap 7.8 mmol/L (3-11); BUN 20 mg/dL (7-18); Bilirubin, Total 0.8 mg/dL (0.2-1.0); CO2 29.2 mmol/L (21.0-32.0); CREATININE 1.3 mg/dL (0.70-1.30); Calcium 9.7 mg/dL (8.5-10.1); Chloride 105 mmol/L (98-107); Estimated GFR 77.22 (mL/min/1.73m2); Glucose 91 mg/dL (74-106); Potassium 4.2 mmol/L (3.5-5.1); Sodium 142 mmol/L (136-145); TSH 2.16 uIU/mL (0.36-3.74); Total Protein 7.5 g/dL (6.4-8.2); Vitamin B12 466 pg/mL (193-986)
[2022-12-01 12:19] LABS: Vitamin D 25 Total 35.8 ng/mL (30-100)
[2022-12-01 12:32] LABS: C-Reactive Protein 0.07 mg/dL (0.0-0.3); FREE T4 1.16 ng/dL (0.76-1.46)
[2022-12-01 19:02] LABS: Thyroperoxidase Antibody <28 U/mL (<=60)
[2022-12-01 19:04] LABS: Thyroglobulin Antibody <15 U/mL (<=60)
[2022-12-03 08:57] LABS: DHEA Sulfate 378 ug/dL (168-592)
[2022-12-03 11:04] LABS: Homocysteine 15.5 umol/L (5.0-13.9)
[2022-12-04 13:35] LABS: Pyridoxal 5-Phosphate (PLP), P 30 mcg/L (5-50)
== END 2022-12-01 10:34 | disposition home or self-care (01) ==
LOC: LBO 10:34
PROVIDERS: PCP Nurse Practitioner Family; Visit Provider Naturopath
DX: R21 Rash and other nonspecific skin eruption (principal); F41.9 Anxiety disorder, unspecified; F51.04 Psychophysiologic insomnia; R59.0 Localized enlarged lymph nodes; E55.9 Vitamin D deficiency, unspecified
CPT/HCPCS: 80053; 82306; 82533; 82627; 83090; 85652; 82607; 82746; 83088; 84207; 84439; 84443; 85025; 86140; 86376; 86800

== ENCOUNTER 2023-01-23 05:30 | Emergency (ER) | payer OTHER, SELFPAY ==
[2023-01-23 05:34] VITALS: BP 141/84; PULSE 136; RESP 16; TEMP 36.4; O2SAT 97
--- NOTE | 2023-01-23 05:40 | ED.GENADUL_ITS ---
Discharge Plan Disposition Patient Disposition: Home Condition: Stable Discharge Details Clinical Impression: Neck pain of over 3 months duration, Neck pain on left side Primary Care Provider: Rajeev Laboy ED Provider: Sonia Lima Home Meds and New Rx's Prescriptions: Continued quetiapine [Seroquel] 25 mg tablet 25 mg PO QHS eszopiclone [Lunesta] 2 mg tablet 2 mg PO QHS vitamin B complex Tablet 1 tab PO DAILY ashwagandha extract 120 mg capsule PO Discharge Instructions Instructions: Chronic Pain (ED), Neck Pain (ED) Additional Instructions: Your exam today is reassuring and does not appear consistent with an acute infection. Your CT scan today showed that you have lymph nodes within the left side of your neck. These can be reactive in the setting of local inflammation, infection or injury. Alternate tylenol and motrin as needed and directed for pain. Continue to try to maintain a regular sleep schedule and take the medications prescribed by your primary care doctor to help with sleep as directed. Follow-up with your primary care doctor in 1 week for reevaluation. Return to the emergency department with any worsening or new concerning symptoms. Discharge Data Discharge Date/Time-TO BE ENTERED AT DEPARTURE: 01/23/23 07:12 Discharge Physician: Sonia Lima Medical Decision Making 27-year-old male with a history of anxiety, panic attacks and insomnia presents for burning pain to the left side of his neck for the last 3 months. Blood pressure moderately hypertensive. Heart rate elevated to 136. Remainder of vitals reassuring. Patient appears sleepy and reports he has not slept yet tonight. Posterior oropharynx appears normal to inspection without evidence of exudates or peritonsillar mass and uvula is midline. He has no drooling, trismus or submandibular swelling. Left lateral neck appears normal to inspection without cellulitis, trauma, rash, lesions. There are small mobile soft palpable lymph nodes to the left lateral lower neck but no obvious indurated mass or significant tenderness. Discussed at length with patient that his exam is reassuring and does not appear consistent with strep pharyngitis, peritonsillar abscess, shingles, disc herniation, fracture, meningitis. Patient does work for [employer] so discussed the possibility of cervical strain or radiculopathy in the setting of repetitive use or injury. Also discussed at length patient's history of insomnia and he discussed his concerns with taking medications which could be habit-forming such as benzodiazepines. He states he has been prescribed multiple medications including Lunesta and Ambien but have not worked but he has been hesitant to try benzodiazepines. He reports he could not take Restoril from his PCP because he cannot swallow capsules. Discussed at length with patient that the effects of insomnia may be much more harmful than a short course of a sleep medication. Also discussed that viral infections or any other acute illness may be heightened or exacerbated by anxiety or insomnia. Mom states she is concerned and would like additional evaluation of his neck. We will obtain a CT neck without contrast to rule out any acute findings such as mass. Do not see an indication for IV contrast as suspicion for abscess or other infection appears unlikely. He declines any pain medication at this time. CT neck notes: IMPRESSION: 1. ? Small probably reactive lymph nodes at patient's palpable site left mid neck. Recommend clinical correlation 2. ? No evidence of mass or abscess. Heart rate improved to 90s. Patient feels more reassured with his symptoms as they appear to be likely reactive lymph nodes. Advised on the importance of fluids, rest, maintaining a regular healthy sleep schedule and follow-up with the PCP for reevaluation in 1 to 2 weeks. Insert return precautions Medical Records Medical records reviewed: Yes I reviewed the patient's medical records. Imaging Data Radiologic Study: Radiologist's impression: CT Neck Without Contrast Exam date and time: 01/23/2023 6:31 AM Age: 27 years old Clinical indication: Mass, lump, or swelling in neck; Bilateral; Patient HX: L side neck pain, sensitive to touch, lymph nodes. R/O mass; Additional info: Bb marker placed on side of lump TECHNIQUE: Imaging protocol: Computed tomography of the neck without contrast. COMPARISON: US SOFT TISSUE HEAD OR NECK 12/01/2022 10:18 AM FINDINGS: Pharynx: Unremarkable. No significant tonsillar enlargement. Larynx: Unremarkable. Epiglottis is normal. Prevertebral and retropharyngeal spaces: Unremarkable. Salivary glands: Normal. Glands are normal in size. Thyroid: Normal. No enlarged or calcified nodules.? Lymph nodes: Small 8 mm subcutaneous lymph nodes adjacent to the BB marker which denotes patient palpable nodule. These are non-specific but likely slightly inflammatory or reactive Trachea: Visualized trachea is unremarkable. Lungs: Unremarkable as visualized. Bones/joints: Unremarkable. No acute fracture. Soft tissues: Unremarkable. No significant soft tissue swelling. IMPRESSION: 1. ? Small probably reactive lymph nodes at patient's palpable site left mid neck. Recommend clinical correlation 2. ? No evidence of mass or abscess HPI General Mode of arrival: ambulatory . Date/Time Provider Initiated Documentation: 01/23/23 05:30 . Limitations to Documentation: no limitations . Information obtained by: patient and family . HPI Narrative: Patient is a 27-year-old male with a history of anxiety, panic attacks, insomnia who presents from home for complaint of severe left-sided neck pain for the past 3 months getting progressively worse. Patient states the pain extends from his jaw down to his clavicle on the left lateral side of his neck. He states the pain feels like burning and is extremely sensitive to just light touch and hurts even with clothing touching it. He denies any rash to the area. Patient has received a varicella vaccine as a child mom reports. Patient also admits to pain within the left side of his throat with swallowing but states he has been able to eat and drink normally and denies any fever, difficulty breathing, or vomiting. Patient has been taking Tylenol and Advil for pain without relief. He denies any known injury. He reports he has seen his PCP for this but has not determined a diagnosis. Related Data Home Medications Medication Instructions Recorded Confirmed ashayahgandha extract 120 mg capsule mg PO 01/10/23 01/10/23 eszopiclone 2 mg tablet (Lunesta) 2 mg PO QHS 01/10/23 01/10/23 quetiapine 25 mg tablet (Seroquel) 25 mg PO QHS 01/10/23 01/23/23 vitamin B complex 1 tab PO DAILY 01/10/23 01/23/23 Allergies Allergy/AdvReac Type Severity Reaction Status Date / Time shellfish derived Allergy Severe Anaphylaxis Verified 01/10/23 14:16 Penicillins Allergy Mild Verified 01/10/23 14:16 General Stated Complaint: Nk/Back Pain MICAELA: 3 Review of Systems All systems reviewed & are unremarkable except as noted in HPI and below Constitutional Constitutional: Reports as per HPI, Denies chills and Denies fever(s) Eyes Eyes: Denies blurry vision ENT Ears, Nose, Mouth, and Throat: Denies dizziness, Reports neck pain, Reports sore throat and Denies throat swelling Cardiovascular Cardiovascular: Denies chest pain and Denies dyspnea Respiratory Respiratory: Denies cough and Denies dyspnea Gastrointestinal Gastrointestinal: Denies abdominal pain, Denies diarrhea and Denies vomiting Genitourinary Genitourinary: Denies hematuria and Denies dysuria Musculoskeletal Musculoskeletal: Denies back pain, Reports neck pain and Denies numbness Integumentary/Breasts Skin/Breast: Denies lesions and Denies rash Neurologic Neurologic: Denies dizziness, Denies localized weakness and Denies numbness Allergic/Immunologic Allergic/Immunologic: Denies throat swelling PFSH All Active Problems (Updated 01/23/23 @ 06:58 by Sonia Lima DO) Neck pain of over 3 months duration (Acute) Neck pain on left side (Acute) Paresthesias (Acute) Rectal spasm (Acute) Proctalgia fugax (Acute) Fatigue (Acute) Insomnia (Acute) Insomnia (Acute) Nasal lesion (Acute) Myoclonic jerking (Acute) Normal neurological exam (Acute) Skin lesion (Acute) Anxiety (Chronic) IBS (irritable bowel syndrome) (Chronic) Diarrhea (Acute) Family history of colon cancer (Acute) Medical History Family history of irritable bowel syndrome Hydronephrosis Kidney stone Panic attack Right ureteral calculus Surgical History History of colonoscopy No significant past surgical history Family History Mother Asthma Father No problems noted. Paternal Grandfather Diabetes Hyperlipidemia Paternal Grandmother Colon cancer Depression Hyperlipidemia Social History Smoking/Tobacco Use Status: Never Second Hand Exposure: Yes Smoking risk assessment performed?: Yes Alcohol Intake: current Alcohol Intake frequency: a few times a week Alcohol type: hard liquor Drug use: Never Substance use type: does not use and marijuana Details: alcohol: t-2 Caregiver/Support person: No Household members: family and other Details: roomate Communication Needs: None Do you need help understanding health information?: Never Pets and animals: No Sexually active: No Do you think of yourself as: straight/heterosexual Current gender identity: male What is your relationship status?: never How often do you talk on the phone with friends or family?: three or more times per week How often do you get together with friends or relatives?: once per week How often do you attend yarsani or methodist services?: 4 or more times per year Do you belong to any clubs or organized social groups?: no Panel score (0-1 are the most socially isolated patients): 2 What type of physical activity do you participate in: bicycling Duration: 60-90 minutes/day Frequency: 3-4 times per week Karla/Yazdanism: Tenriism Special karla needs: No Seatbelt use: always Helmet use: Yes Helmet use: sometimes Drive 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 Do you feel safe at home: Yes Do you feel safe in your relationship?: Yes Exam Const General: cooperative and no acute distress Orientation: alert, awake and oriented x3 HENMT Head: normal to inspection Ears: hearing grossly normal bilaterally, external ears normal and TM's normal bilaterally General nose exam: external nose normal Face and sinus: normal facial exam Mouth: oral mucosae normal, no drooling and no trismus Throat: posterior oropharynx normal, uvula midline and no peritonsillar masses Eyes General: appearance normal, both eyes and all related structures Pupils: PERRL EOM: EOM intact bilaterally Neck Neck: normal visual inspection, full ROM, no meningeal signs, trachea midline, supple, no anterior neck swelling and No submandibular swelling Neck images: 1. Multiple palpable 1 x 1 cm soft mobile lymph nodes palpable in the left lateral lower neck. There is no surrounding erythema, edema, ecchymosis, induration, drainage or bleeding. Chest Chest: normal inspection of the chest and no tenderness Resp Effort & Inspection: normal respiratory effort and able to speak in complete sentences Cardio Rate: regular rate Skin General skin exam: no rashes or lesions noted Neuro General: patient alert, patient awake, patient oriented x3, moves all extremities and no meningeal signs Cognition: normal cognition Speech: speech normal Motor: muscle tone normal throughout Sensory Exam: no sensory deficits noted Extrem General: normal to inspection and full ROM Psych Appearance: grossly normal Mental Status: mental status grossly normal Speech and Movement: speech and movement normal Affect: normal affect
--- NOTE | 2023-01-23 06:15 | DI.CT_ITS ---
Exam(s) CT NECK WO EXAM: CT NECK WO CLINICAL HISTORY: L side neck pain, sensitive to touch, lymph nodes. TECHNIQUE: Imaging Protocol: Axial computed tomography images with coronal and sagittal reformatted images were created and reviewed. CONTRAST MATERIAL: Intravenous: No contrast was administered. COMPARISON: No exams were available for comparison FINDINGS: Visualized paranasal sinuses: Within normal limits. Nasopharynx: Within normal limits. Oropharynx: Within normal limits. Hypopharynx: Within normal limits. Larynx: Within normal limits. Retropharyngeal space: Within normal limits. Parotids/submandibular: Within normal limits. Thyroid gland: Within normal limits. Lymphadenopathy: There is scattered lymph nodes seen along the level one to level three all measurin g less than 8 mm in short axis diameter which are physiologic in nature. Marker was placed in the lef t neck in the area of palpable abnormality. Small less than 8 mm lymph nodes are seen in this region . Trachea: Within normal limits. Lung apices: Within normal limits. Bones: Within normal limits for the patient's age. Carotids/Jugular: Within normal limits. Soft tissues: Within normal limits. IMPRESSION: 1. No significant adenopathy. Small, less than 8 mm, lymph nodes are seen at the site identified by the patient in the left neck. These are likely reactive. 2. No suspicious masses or fluid collections are seen. RADIATION DOSE DELIVERED: 525.44mGy.cm Total DLP 525.44mGy.cm Total DLP DATA REPOSITORY: All CT scans at this facility are submitted to the National Radiology Data Registry (NRDR) Dose Index Registry (DIR) with the [employer] ([employer]). RADIATION OPTIMIZATION: All CT scans at this facility use at least one of these dose optimization te chniques: automated exposure control; mA and/or kV adjustment per patient size (includes targeted exa ms where dose is matched to clinical indication); or iterative reconstruction.
--- NOTE | 2023-01-23 06:59 | DI.VRAD_ITS ---
PROCEDURE INFORMATION: Exam: CT Neck Without Contrast Exam date and time: 01/23/2023 6:31 AM Age: 27 years old Clinical indication: Mass, lump, or swelling in neck; Bilateral; Patient HX: L side neck pain, sensitive to touch, lymph nodes. R/O mass; Additional info: Bb marker placed on side of lump TECHNIQUE: Imaging protocol: Computed tomography of the neck without contrast. COMPARISON: US SOFT TISSUE HEAD OR NECK 12/01/2022 10:18 AM FINDINGS: Pharynx: Unremarkable. No significant tonsillar enlargement. Larynx: Unremarkable. Epiglottis is normal. Prevertebral and retropharyngeal spaces: Unremarkable. Salivary glands: Normal. Glands are normal in size. Thyroid: Normal. No enlarged or calcified nodules. Lymph nodes: Small 8 mm subcutaneous lymph nodes adjacent to the BB marker which denotes patient palpable nodule. These are non-specific but likely slightly inflammatory or reactive Trachea: Visualized trachea is unremarkable. Lungs: Unremarkable as visualized. Bones/joints: Unremarkable. No acute fracture. Soft tissues: Unremarkable. No significant soft tissue swelling. IMPRESSION: 1. Small probably reactive lymph nodes at patient's palpable site left mid neck. Recommend clinical correlation 2. No evidence of mass or abscess Dictated and Authenticated by: Nga Norton MD. Ordering:RAMAKRISHNA Scott MD
[2023-01-23 07:10] VITALS: BP 132/71; PULSE 95; RESP 17; TEMP 36.4; O2SAT 100
== END 2023-01-23 07:12 | disposition home or self-care (01) ==
PROVIDERS: Emergency Provider Physician Assistant; PCP Nurse Practitioner Family
DX: M54.2 Cervicalgia (principal)
CPT/HCPCS: 99284; 70490; 99283

== ENCOUNTER 2023-02-07 01:16 | Outpatient (CLI) | payer OTHER, SELFPAY ==
--- NOTE | 2023-02-07 07:15 | DI.MRI_ITS ---
Exam(s) MR BRAIN WO EXAM: MR BRAIN WO CLINICAL HISTORY: ?MS,myoclonic jerking,insomnia,paresthesias,r20.2,g25.3,g47.00 TECHNIQUE: Multiplanar multisequence MRI of the brain was performed. COMPARISON: No exams were available for comparison FINDINGS: VENTRICLES AND EXTRA AXIAL SPACES: Normal in size and morphology for the patient's age. MIDLINE SHIFT: None. CEREBRAL PARENCHYMA: No focus of restricted diffusion to suggest acute infarct. No space-occupying le mark identified. No high signal lesions in the white matter. HEMORRHAGE: None. BRAINSTEM/CEREBELLUM: Normal. VISUALIZED PARANASAL SINUSES/MASTOIDS:Clear. Vasculature: Normal flow void. PITUITARY GLAND: Unremarkable. ORBITS: Unremarkable. IMPRESSION: Unremarkable MRI of the brain. DATA REPOSITORY:
== END 2023-02-07 01:36 ==
LOC: DI 01:16
PROVIDERS: PCP Nurse Practitioner Family; Visit Provider Psychiatry & Neurology Neurology
DX: G25.3 Myoclonus (principal); G47.00 Insomnia, unspecified; R20.2 Paresthesia of skin
CPT/HCPCS: 70551

== ENCOUNTER 2025-06-19 15:19 | Outpatient (CLI) | payer OTHER, SELFPAY ==
[2025-06-19 14:02] LABS: TSH (W/Ref FT4) 1.72 uIU/mL (0.36-3.74)
[2025-06-24 17:24] LABS: Testosterone, Free 13.8 ng/dL (5.05-19.8)
== END 2025-06-19 15:20 | disposition home or self-care (01) ==
LOC: LBO 15:19
PROVIDERS: PCP Nurse Practitioner Family; Visit Provider Nurse Practitioner Family
DX: E03.9 Hypothyroidism, unspecified (principal); R37 Sexual dysfunction, unspecified
CPT/HCPCS: 36415; 84402; 84403; 84443